=== PATIENT | female | born 1940 | race Caucasian/White ===

== ENCOUNTER → 2017-12-26 09:41 | Outpatient (CLI) | payer MEDICARE, SELFPAY ==
[2017-12-26 10:01] LABS: Basophils # 0.1 K/mm3 (0-0.2); Basophils % 1.8 % (0.1-2.0); Eosinophils # 0.4 K/mm3 (0.0-0.4); Eosinophils % 7.1 % (0.1-12.0); Hematocrit 25.9 % (37.0-47.0); Lymphocytes # 1.8 K/mm3 (0.7-4.5); Lymphocytes % 31.9 K/mm3 (10-50); Mean Corpuscular HGB Conc 27.4 g/dL (31.8-35.4); Mean Corpuscular Hemoglobin 21.9 pg (27.0-31.2); Mean Platelet Volume 8.9 fl (7.4-10.4); Monocytes # 0.4 K/mm3 (0.1-1.0); Monocytes % 6.8 % (1.7-9.3); Neutrophils # 2.9 K/mm3 (1.8-7.8); Neutrophils % 52.4 % (37.0-80.0); Platelet Count 318 K/mm3 (142-424); Red Blood Count 3.24 M/mm3 (4.20-5.40); Red Cell Distribution Width 16.1 % (11.5-17.5); White Blood Count 5.6 K/mm3 (4.8-10.8)
[2017-12-26 10:06] LABS: Hemoglobin 7.1 g/dL (12.2-16.2)
== END ==
PROVIDERS: Visit Provider Internal Medicine Interventional Cardiology
DX: D64.9 Anemia, unspecified (principal)
CPT/HCPCS: 36415; 85025

== ENCOUNTER → 2018-01-04 11:36 | Outpatient (CLI) | payer MEDICARE, SELFPAY ==
[2018-01-04 13:20] VITALS: PULSE 74
[2018-01-04 13:34] LABS: Ferritin 107 ng/mL (8-388)
[2018-01-04 13:47] LABS: Basophils # 0.1 K/mm3 (0-0.2); Basophils % 1.5 % (0.1-2.0); Eosinophils # 0.4 K/mm3 (0.0-0.4); Eosinophils % 5.4 % (0.1-12.0); Hematocrit 38.3 % (37.0-47.0); Hemoglobin 11.2 g/dL (12.2-16.2); Lymphocytes # 1.8 K/mm3 (0.7-4.5); Lymphocytes % 27.1 K/mm3 (10-50); Mean Corpuscular HGB Conc 29.2 g/dL (31.8-35.4); Mean Corpuscular Hemoglobin 24.2 pg (27.0-31.2); Mean Corpuscular Volume 82.8 fl (81-99); Mean Platelet Volume 7.9 fl (7.4-10.4); Monocytes # 0.5 K/mm3 (0.1-1.0); Monocytes % 7.9 % (1.7-9.3); Neutrophils # 3.9 K/mm3 (1.8-7.8); Neutrophils % 58.1 % (37.0-80.0); Platelet Count 300 K/mm3 (142-424); Red Blood Count 4.62 M/mm3 (4.20-5.40); Reticulocyte % (Auto) 6.9 % (0.9-3.2); White Blood Count 6.7 K/mm3 (4.8-10.8)
[2018-01-05 08:29] LABS: Iron 202 ug/dL (27-139); Iron Saturation 54 % (15-55); UIBC 173 ug/dL (118-369)
[2018-01-06 06:39] LABS: Vitamin B12 543 pg/mL (232-1245)
== END ==
PROVIDERS: Nurse Practitioner Acute Care; Family Provider Nurse Practitioner Family; PCP Family Medicine; Visit Provider Internal Medicine Interventional Cardiology
DX: D50.9 Iron deficiency anemia, unspecified (principal); R06.02 Shortness of breath; J44.9 Chronic obstructive pulmonary disease, unspecified
CPT/HCPCS: 36415; 82607; 82728; 83540; 83550; 85025; 85044; 94060; 94640; 94727; 94729

== ENCOUNTER → 2018-02-02 13:25 | Outpatient (CLI) | payer MEDICARE, SELFPAY ==
--- NOTE | 2018-02-02 13:32 | XR_ITS ---
XR KUB HISTORY: Status post capsule endoscopy with retained capsule ITS.REASON: RETAINED F/B ORDERING PHYSICIAN: Stefanie Hanna PATIENT AGE: 77 years COMPARISON: None FINDINGS: A capsule is present overlying the right iliac crest in the region of the cecum. There is an additional density in the left upper quadrant overlying the area of the proximal descending colon. No obstruction or other significant anomalies. IMPRESSION: 2 densities are present one in region of the cecum and one in region of the splenic flexure. The density in the right lower quadrant is consistent with a retained capsule from the capsule endoscopy. The density in the left upper quadrant could be related to retained capsule or overlying calcification in the spleen. Please correlate to the number of capsules that the patient was given
== END ==
PROVIDERS: PCP Family Medicine; Visit Provider Nurse Practitioner Family
DX: Z18.9 Retained foreign body fragments, unspecified material (principal)
CPT/HCPCS: 74018

== ENCOUNTER → 2018-04-06 11:12 | Outpatient (CLI) | payer MEDICARE, SELFPAY ==
--- NOTE | 2018-04-06 11:17 | XR_ITS ---
XR KUB HISTORY: ITS.REASON: RETAINED FOREIGN BODY ORDERING PHYSICIAN: Marleny Walton PATIENT AGE: 77 years COMPARISON: 02/02/2018 FINDINGS: There is an oval density present in the left upper quadrant in the region of the distal transverse colon measuring 16 mm and is consistent with retained capsule from capsule endoscopy. The previously noted opacity overlying the splenic flexure is no longer apparent. There is a mild amount retained colonic feces. IMPRESSION: Retained capsule from capsule endoscopy within the distal aspect of the transverse colon
== END ==
PROVIDERS: PCP Family Medicine; Visit Provider Internal Medicine Gastroenterology
DX: Z18.9 Retained foreign body fragments, unspecified material (principal)
CPT/HCPCS: 74018

== ENCOUNTER → 2019-12-25 15:56 | Outpatient (CLI) | payer MEDICARE, SELFPAY ==
[2019-12-25 16:52] LABS: Basophils # 0.1 K/mm3 (0-0.2); Basophils % 1.1 % (0.1-2.0); Eosinophils # 0.3 K/mm3 (0.0-0.4); Eosinophils % 3.3 % (0.1-12.0); Hematocrit 49.5 % (37.0-47.0); Hemoglobin 16.4 g/dL (12.2-16.2); Lymphocytes # 2.6 K/mm3 (0.7-4.5); Lymphocytes % 31.5 % (10-50); Mean Corpuscular HGB Conc 33.1 g/dL (31.8-35.4); Mean Corpuscular Hemoglobin 33.4 pg (27.0-31.2); Mean Corpuscular Volume 100.9 fl (81-99); Mean Platelet Volume 11.7 fl (7.4-10.4); Monocytes # 0.8 K/mm3 (0.1-1.0); Neutrophils # 4.6 K/mm3 (1.8-7.8); Neutrophils % 55.2 % (37.0-80.0); Platelet Count 170 K/mm3 (142-424); Red Blood Count 4.91 M/mm3 (4.20-5.40); White Blood Count 8.4 K/mm3 (4.8-10.8)
[2019-12-25 18:07] LABS: Alanine Aminotransferase 24 U/L (12-78); Albumin Level 4.2 g/dl (3.5-5.0); Albumin/Globulin Ratio 1.4 (1.1-1.8); Alkaline Phosphatase 108 U/L (38-126); Aspartate Amino Transferase 35 U/L (14-36); Bilirubin,Total 0.6 mg/dl (0.2-1.3); Blood Urea Nitrogen 14 mg/dl (7-17); Calcium 10.2 mg/dl (8.4-10.2); Carbon Dioxide 27 mmol/L (22.0-30.0); Chloride 106 mmol/L (98-107); Chol/HDL Ratio 2.9 (1-3.5); Cholesterol 169 mg/dl (140-200); Estimated Glomerular Filt Rate 70 ml/min (>60); GFR (African American) 84 ML/MIN (>60); Globulin 2.9 g/dL (1.3-3.2); Glucose 93 mg/dl (74-100); HDL Cholesterol 59 mg/dl (40-60); Sodium 139 mmol/L (136-145); Total Protein,Serum 7.1 g/dl (6.3-8.2); Triglycerides 263 mg/dl (30-150); VLDL Cholesterol 53 mg/dL (0-40)
[2019-12-25 18:18] LABS: Direct LDL Cholesterol 75.78 mg/dL (100-129)
[2019-12-25 18:37] LABS: Thyroid Stimulating Hormone 1.85 uIU/mL (0.465-4.68)
[2019-12-27 12:34] LABS: Vitamin B12 313 pg/mL (232-1245)
== END ==
PROVIDERS: Visit Provider Nurse Practitioner Family
DX: I10 Essential (primary) hypertension (principal); E78.5 Hyperlipidemia, unspecified; R53.83 Other fatigue
CPT/HCPCS: 36415; 80053; 80061; 82607; 83735; 84443; 85025

== ENCOUNTER → 2020-10-29 15:19 | Outpatient (CLI) | payer MEDICARE, SELFPAY ==
--- NOTE | 2020-10-29 15:28 | XR_ITS ---
PROCEDURE: XR CHEST 2V CLINICAL HISTORY: SOB COMPARISON: No exams were available for comparison FINDINGS: The cardiomediastinal silhouette and pulmonary vascularity are within normal limits. The lungs are clear without infiltrates, suspicious nodules, or pleural effusions. No acute bony abnormalities. IMPRESSION: No acute findings. Dictated by: Fly Harden MD 10/29/2020 15:51 Fly Harden MD in [place] 10/29/2020 15:51
== END ==
PROVIDERS: PCP Nurse Practitioner Family; Visit Provider Family Medicine
DX: R06.02 Shortness of breath (principal)
CPT/HCPCS: 71046

== ENCOUNTER → 2020-11-11 12:59 | Outpatient (CLI) | payer MEDICARE, SELFPAY ==
[2020-11-11 13:31] LABS: INR 2.38 (0.9-1.1); Prothrombin Time 26.3 seconds (10.1-12.5)
== END ==
PROVIDERS: Visit Provider Internal Medicine
DX: Z51.81 Encounter for therapeutic drug level monitoring (principal); Z79.01 Long term (current) use of anticoagulants; I48.91 Unspecified atrial fibrillation
CPT/HCPCS: 36415; 85610

== ENCOUNTER → 2020-11-17 10:30 | Outpatient (CLI) | payer MEDICARE, SELFPAY ==
[2020-11-17 11:20] LABS: Prothrombin Time 22.1 seconds (10.1-12.5)
[2020-11-17 11:22] LABS: INR 1.97 (0.9-1.1)
== END ==
PROVIDERS: Visit Provider Internal Medicine
DX: Z20.822 Contact with and (suspected) exposure to COVID-19 (principal); Z51.81 Encounter for therapeutic drug level monitoring; Z79.01 Long term (current) use of anticoagulants; I48.0 Paroxysmal atrial fibrillation
CPT/HCPCS: 36415; 85610; U0003

== ENCOUNTER → 2020-11-21 10:08 | Outpatient (CLI) | payer MEDICARE, SELFPAY ==
[2020-11-21 10:40] LABS: Prothrombin Time 21.2 seconds (10.1-12.5)
[2020-11-21 10:41] LABS: INR 1.88 (0.9-1.1)
== END ==
PROVIDERS: Visit Provider Internal Medicine
DX: Z51.81 Encounter for therapeutic drug level monitoring (principal); Z79.01 Long term (current) use of anticoagulants; I48.0 Paroxysmal atrial fibrillation
CPT/HCPCS: 36415; 85610

== ENCOUNTER → 2020-11-26 10:32 | Outpatient (CLI) | payer MEDICARE, SELFPAY ==
[2020-11-26 11:21] LABS: Prothrombin Time 16.2 seconds (10.1-12.5)
[2020-11-26 11:30] LABS: INR 1.41 (0.9-1.1)
== END ==
PROVIDERS: Visit Provider Internal Medicine
DX: Z51.81 Encounter for therapeutic drug level monitoring (principal); Z79.01 Long term (current) use of anticoagulants; I48.0 Paroxysmal atrial fibrillation
CPT/HCPCS: 36415; 85610

== ENCOUNTER → 2020-12-01 09:29 | Outpatient (CLI) | payer MEDICARE, SELFPAY ==
[2020-12-01 10:25] LABS: INR 2.67 (0.9-1.1); Prothrombin Time 29.3 seconds (10.1-12.5)
== END ==
PROVIDERS: Visit Provider Internal Medicine
DX: Z51.81 Encounter for therapeutic drug level monitoring (principal); Z79.01 Long term (current) use of anticoagulants; I48.0 Paroxysmal atrial fibrillation
CPT/HCPCS: 36415; 85610

== ENCOUNTER → 2020-12-05 09:35 | Outpatient (CLI) | payer MEDICARE, SELFPAY ==
[2020-12-05 10:03] LABS: INR 2.15 (0.9-1.1)
== END ==
PROVIDERS: Visit Provider Internal Medicine
DX: Z51.81 Encounter for therapeutic drug level monitoring (principal); Z79.01 Long term (current) use of anticoagulants; I48.0 Paroxysmal atrial fibrillation
CPT/HCPCS: 36415; 85610

== ENCOUNTER → 2020-12-12 09:53 | Outpatient (CLI) | payer MEDICARE, SELFPAY ==
[2020-12-12 10:15] LABS: Prothrombin Time 31.5 seconds (10.1-12.5)
[2020-12-12 10:17] LABS: INR 2.89 (0.9-1.1)
== END ==
PROVIDERS: Visit Provider Internal Medicine
DX: Z51.81 Encounter for therapeutic drug level monitoring (principal); Z79.01 Long term (current) use of anticoagulants; I48.0 Paroxysmal atrial fibrillation
CPT/HCPCS: 36415; 85610

== ENCOUNTER → 2020-12-26 09:44 | Outpatient (CLI) | payer MEDICARE, SELFPAY ==
[2020-12-26 10:13] LABS: Prothrombin Time 24.3 seconds (10.1-12.5)
[2020-12-26 10:20] LABS: INR 2.18 (0.9-1.1)
== END ==
PROVIDERS: Visit Provider Internal Medicine
DX: Z51.81 Encounter for therapeutic drug level monitoring (principal); Z79.01 Long term (current) use of anticoagulants; I48.0 Paroxysmal atrial fibrillation
CPT/HCPCS: 36415; 85610

== ENCOUNTER → 2021-02-03 09:11 | Outpatient (CLI) | payer MEDICARE, SELFPAY ==
[2021-02-03 09:35] LABS: Prothrombin Time 25.1 seconds (10.1-12.5)
[2021-02-03 09:39] LABS: INR 2.26 (0.9-1.1)
== END ==
PROVIDERS: Visit Provider Internal Medicine
DX: Z51.81 Encounter for therapeutic drug level monitoring (principal); Z79.01 Long term (current) use of anticoagulants; I48.0 Paroxysmal atrial fibrillation
CPT/HCPCS: 36415; 85610

== ENCOUNTER → 2021-03-04 11:02 | Outpatient (CLI) | payer MEDICARE, SELFPAY ==
[2021-03-04 11:24] LABS: Prothrombin Time 40.3 seconds (10.1-12.5)
[2021-03-04 11:25] LABS: INR 3.77 (0.9-1.1)
== END ==
PROVIDERS: Visit Provider Internal Medicine
DX: Z51.81 Encounter for therapeutic drug level monitoring (principal); Z79.01 Long term (current) use of anticoagulants; I48.0 Paroxysmal atrial fibrillation
CPT/HCPCS: 36415; 85610

== ENCOUNTER → 2021-03-18 09:37 | Outpatient (CLI) | payer MEDICARE, SELFPAY ==
[2021-03-18 10:12] LABS: INR 2.67 (0.9-1.1); Prothrombin Time 28.1 seconds (10.1-12.5)
== END ==
PROVIDERS: Visit Provider Internal Medicine
DX: Z51.81 Encounter for therapeutic drug level monitoring (principal); Z79.01 Long term (current) use of anticoagulants; I48.0 Paroxysmal atrial fibrillation; R79.1 Abnormal coagulation profile
CPT/HCPCS: 36415; 85610

== ENCOUNTER → 2021-05-04 09:20 | Outpatient (CLI) | payer MEDICARE, SELFPAY ==
[2021-05-04 09:58] LABS: INR 2.42 (0.9-1.1); Prothrombin Time 25.6 seconds (10.1-12.5)
== END ==
PROVIDERS: Visit Provider Internal Medicine
DX: Z51.81 Encounter for therapeutic drug level monitoring (principal); Z79.01 Long term (current) use of anticoagulants; I48.0 Paroxysmal atrial fibrillation
CPT/HCPCS: 36415; 85610

== ENCOUNTER → 2021-06-01 12:21 | Outpatient (CLI) | payer MEDICARE, SELFPAY ==
[2021-06-01 13:05] LABS: INR 2.69 (0.9-1.1); Prothrombin Time 28.2 seconds (10.1-12.5)
== END ==
PROVIDERS: Visit Provider Internal Medicine
DX: Z51.81 Encounter for therapeutic drug level monitoring (principal); Z79.01 Long term (current) use of anticoagulants; I48.0 Paroxysmal atrial fibrillation
CPT/HCPCS: 36415; 85610

== ENCOUNTER → 2021-07-06 09:11 | Outpatient (CLI) | payer MEDICARE, SELFPAY ==
[2021-07-06 09:40] LABS: Prothrombin Time 19.5 seconds (10.1-12.5)
== END ==
PROVIDERS: PCP Family Medicine; Visit Provider Internal Medicine
DX: R79.1 Abnormal coagulation profile (principal)
CPT/HCPCS: 36415; 85610

== ENCOUNTER → 2021-07-24 12:13 | Outpatient (CLI) | payer MEDICARE, SELFPAY ==
[2021-07-24 13:50] LABS: INR 2.65 (0.9-1.1); Prothrombin Time 27.9 seconds (10.1-12.5)
== END ==
PROVIDERS: PCP Family Medicine; Visit Provider Internal Medicine
DX: Z51.81 Encounter for therapeutic drug level monitoring (principal); Z79.01 Long term (current) use of anticoagulants; I48.0 Paroxysmal atrial fibrillation
CPT/HCPCS: 36415; 85610

== ENCOUNTER → 2021-08-17 09:29 | Outpatient (CLI) | payer MEDICARE, SELFPAY ==
[2021-08-17 10:03] LABS: INR 3.17 (0.9-1.1); Prothrombin Time 32.9 seconds (10.1-12.5)
== END ==
PROVIDERS: Visit Provider Internal Medicine
DX: I48.0 Paroxysmal atrial fibrillation (principal)
CPT/HCPCS: 36415; 85610

== ENCOUNTER → 2021-08-31 11:10 | Outpatient (CLI) | payer MEDICARE, SELFPAY ==
[2021-08-31 12:41] LABS: INR 2.05 (0.9-1.1)
== END ==
PROVIDERS: Visit Provider Internal Medicine
DX: Z51.81 Encounter for therapeutic drug level monitoring (principal); Z79.01 Long term (current) use of anticoagulants; I48.0 Paroxysmal atrial fibrillation
CPT/HCPCS: 36415; 85610

== ENCOUNTER → 2021-09-14 14:20 | Outpatient (CLI) | payer MEDICARE, SELFPAY ==
[2021-09-14 15:19] LABS: INR 1.34 (0.9-1.1); Prothrombin Time 14.8 seconds (10.1-12.5)
== END ==
PROVIDERS: Visit Provider Internal Medicine
DX: I48.0 Paroxysmal atrial fibrillation (principal)
CPT/HCPCS: 36415; 85610

== ENCOUNTER → 2021-09-18 10:34 | Outpatient (CLI) | payer MEDICARE, SELFPAY ==
[2021-09-18 11:00] LABS: Prothrombin Time 24.4 seconds (10.1-12.5)
== END ==
PROVIDERS: Visit Provider Internal Medicine
DX: Z51.81 Encounter for therapeutic drug level monitoring (principal); Z79.01 Long term (current) use of anticoagulants; I48.0 Paroxysmal atrial fibrillation
CPT/HCPCS: 36415; 85610

== ENCOUNTER → 2021-09-25 10:33 | Outpatient (CLI) | payer MEDICARE, SELFPAY ==
[2021-09-25 11:19] LABS: INR 2.42 (0.9-1.1); Prothrombin Time 25.6 seconds (10.1-12.5)
== END ==
PROVIDERS: Visit Provider Internal Medicine
DX: Z51.81 Encounter for therapeutic drug level monitoring (principal); Z79.01 Long term (current) use of anticoagulants; I48.0 Paroxysmal atrial fibrillation
CPT/HCPCS: 36415; 85610

== ENCOUNTER → 2021-10-05 10:32 | Outpatient (CLI) | payer MEDICARE, SELFPAY ==
[2021-10-05 10:59] LABS: INR 2.79 (0.9-1.1); Prothrombin Time 29.2 seconds (10.1-12.5)
== END ==
PROVIDERS: Visit Provider Internal Medicine
DX: Z51.81 Encounter for therapeutic drug level monitoring (principal); Z79.01 Long term (current) use of anticoagulants; I48.0 Paroxysmal atrial fibrillation
CPT/HCPCS: 36415; 85610

== ENCOUNTER → 2021-10-20 12:15 | Outpatient (CLI) | payer MEDICARE, SELFPAY ==
[2021-10-20 13:13] LABS: Chol/HDL Ratio 2.4 (1-3.5); Cholesterol 146 mg/dl (140-200); HDL Cholesterol 62 mg/dl (40-60); Triglycerides 136 mg/dl (30-150); VLDL Cholesterol 27 mg/dL (0-40)
[2021-10-20 13:23] LABS: Troponin I < 0.01 ng/ml (0.00-0.034)
[2021-10-20 13:24] LABS: Direct LDL Cholesterol 55.55 mg/dL (100-129)
== END ==
PROVIDERS: Visit Provider Family Medicine
DX: R94.31 Abnormal electrocardiogram [ECG] [EKG] (principal); E78.5 Hyperlipidemia, unspecified
CPT/HCPCS: 36415; 80061; 84484

== ENCOUNTER → 2021-10-21 09:00 | Outpatient (CLI) | payer MEDICARE, SELFPAY ==
[2021-10-21 10:28] LABS: Troponin I < 0.01 ng/ml (0.00-0.034)
== END ==
PROVIDERS: Visit Provider Nurse Practitioner Family
DX: I48.91 Unspecified atrial fibrillation (principal); I10 Essential (primary) hypertension
CPT/HCPCS: 36415; 84484

== ENCOUNTER → 2021-11-03 10:46 | Outpatient (CLI) | payer MEDICARE, SELFPAY ==
[2021-11-03 11:47] LABS: INR 2.22 (0.9-1.1); Prothrombin Time 23.6 seconds (10.1-12.5)
== END ==
PROVIDERS: Visit Provider Internal Medicine
DX: Z51.81 Encounter for therapeutic drug level monitoring (principal); Z79.01 Long term (current) use of anticoagulants; I48.0 Paroxysmal atrial fibrillation
CPT/HCPCS: 36415; 85610

== ENCOUNTER → 2021-12-02 10:33 | Outpatient (CLI) | payer MEDICARE, SELFPAY ==
[2021-12-02 11:12] LABS: INR 2.44 (0.9-1.1); Prothrombin Time 25.8 seconds (10.1-12.5)
== END ==
PROVIDERS: PCP Family Medicine; Visit Provider Internal Medicine
DX: Z51.81 Encounter for therapeutic drug level monitoring (principal); Z79.01 Long term (current) use of anticoagulants; I48.0 Paroxysmal atrial fibrillation
CPT/HCPCS: 36415; 85610

== ENCOUNTER → 2021-12-30 10:01 | Outpatient (CLI) | payer MEDICARE, SELFPAY ==
[2021-12-30 11:06] LABS: INR 1.67 (0.9-1.1); Prothrombin Time 18.2 seconds (10.1-12.5)
== END ==
PROVIDERS: PCP Family Medicine; Visit Provider Internal Medicine
DX: Z51.81 Encounter for therapeutic drug level monitoring (principal); Z79.01 Long term (current) use of anticoagulants; I48.0 Paroxysmal atrial fibrillation
CPT/HCPCS: 36415; 85610

== ENCOUNTER → 2022-01-06 09:39 | Outpatient (CLI) | payer MEDICARE, SELFPAY ==
[2022-01-06 10:09] LABS: INR 2.04 (0.9-1.1); Prothrombin Time 21.9 seconds (10.1-12.5)
== END ==
PROVIDERS: PCP Family Medicine; Visit Provider Internal Medicine
DX: Z51.81 Encounter for therapeutic drug level monitoring (principal); Z79.01 Long term (current) use of anticoagulants; I48.0 Paroxysmal atrial fibrillation
CPT/HCPCS: 36415; 85610

== ENCOUNTER → 2022-01-25 10:49 | Outpatient (CLI) | payer MEDICARE, SELFPAY ==
[2022-01-25 11:58] LABS: INR 4.61 (0.9-1.1)
[2022-01-25 15:23] LABS: Prothrombin Time 46.5 seconds (10.1-12.5)
== END ==
PROVIDERS: PCP Family Medicine; Visit Provider Internal Medicine
DX: Z51.81 Encounter for therapeutic drug level monitoring (principal); Z79.01 Long term (current) use of anticoagulants; I48.0 Paroxysmal atrial fibrillation
CPT/HCPCS: 36415; 85610

== ENCOUNTER → 2022-01-29 10:30 | Outpatient (CLI) | payer MEDICARE, SELFPAY ==
[2022-01-29 11:10] LABS: INR 2.15 (0.9-1.1)
== END ==
PROVIDERS: PCP Family Medicine; Visit Provider Internal Medicine
DX: Z51.81 Encounter for therapeutic drug level monitoring (principal); Z79.01 Long term (current) use of anticoagulants; I48.0 Paroxysmal atrial fibrillation
CPT/HCPCS: 36415; 85610

== ENCOUNTER → 2022-02-05 09:19 | Outpatient (CLI) | payer MEDICARE, SELFPAY ==
[2022-02-05 09:47] LABS: Prothrombin Time 25.4 seconds (10.1-12.5)
== END ==
PROVIDERS: PCP Family Medicine; Visit Provider Internal Medicine
DX: Z51.81 Encounter for therapeutic drug level monitoring (principal); Z79.01 Long term (current) use of anticoagulants; I48.0 Paroxysmal atrial fibrillation
CPT/HCPCS: 36415; 85610

== ENCOUNTER → 2022-02-22 10:09 | Outpatient (CLI) | payer MEDICARE, SELFPAY ==
[2022-02-22 10:38] LABS: INR 3.11 (0.9-1.1); Prothrombin Time 31.5 seconds (10.1-12.5)
== END ==
PROVIDERS: PCP Family Medicine; Visit Provider Internal Medicine
DX: Z51.81 Encounter for therapeutic drug level monitoring (principal); Z79.01 Long term (current) use of anticoagulants; I48.0 Paroxysmal atrial fibrillation
CPT/HCPCS: 36415; 85610

== ENCOUNTER → 2022-03-08 11:43 | Outpatient (CLI) | payer MEDICARE, SELFPAY ==
[2022-03-08 12:08] LABS: INR 3.01 (0.9-1.1); Prothrombin Time 30.5 seconds (10.1-12.5)
== END ==
PROVIDERS: PCP Family Medicine; Visit Provider Internal Medicine
DX: Z51.81 Encounter for therapeutic drug level monitoring (principal); Z79.01 Long term (current) use of anticoagulants; I48.0 Paroxysmal atrial fibrillation
CPT/HCPCS: 36415; 85610

== ENCOUNTER → 2022-03-23 09:43 | Outpatient (CLI) | payer MEDICARE, SELFPAY ==
[2022-03-23 10:06] LABS: INR 2.26 (0.9-1.1); Prothrombin Time 23.3 seconds (10.1-12.5)
== END ==
PROVIDERS: PCP Family Medicine; Visit Provider Internal Medicine
DX: Z51.81 Encounter for therapeutic drug level monitoring (principal); Z79.01 Long term (current) use of anticoagulants; I48.0 Paroxysmal atrial fibrillation
CPT/HCPCS: 36415; 85610

== ENCOUNTER → 2022-04-07 09:55 | Outpatient (CLI) | payer MEDICARE, SELFPAY ==
[2022-04-07 10:40] LABS: INR 2.38 (0.9-1.1); Prothrombin Time 24.5 seconds (10.1-12.5)
== END ==
PROVIDERS: PCP Family Medicine; Visit Provider Internal Medicine
DX: Z51.81 Encounter for therapeutic drug level monitoring (principal); Z79.01 Long term (current) use of anticoagulants; I48.0 Paroxysmal atrial fibrillation
CPT/HCPCS: 36415; 85610

== ENCOUNTER → 2022-04-20 10:57 | Outpatient (CLI) | payer MEDICARE, SELFPAY ==
[2022-04-20 11:29] LABS: INR 3.32 (0.9-1.1); Prothrombin Time 33.5 seconds (10.1-12.5)
== END ==
PROVIDERS: PCP Family Medicine; Visit Provider Internal Medicine
DX: Z51.81 Encounter for therapeutic drug level monitoring (principal); Z79.01 Long term (current) use of anticoagulants; I48.0 Paroxysmal atrial fibrillation
CPT/HCPCS: 36415; 85610

== ENCOUNTER → 2022-05-12 09:56 | Outpatient (CLI) | payer MEDICARE, SELFPAY ==
[2022-05-12 10:39] LABS: INR 2.01 (0.9-1.1); Prothrombin Time 20.9 seconds (10.1-12.5)
== END ==
PROVIDERS: PCP Family Medicine; Visit Provider Internal Medicine
DX: Z51.81 Encounter for therapeutic drug level monitoring (principal); Z79.01 Long term (current) use of anticoagulants; I48.0 Paroxysmal atrial fibrillation
CPT/HCPCS: 36415; 85610

== ENCOUNTER → 2022-06-01 13:29 | Outpatient (CLI) | payer MEDICARE, SELFPAY ==
[2022-06-01 14:15] LABS: INR 2.68 (0.9-1.1); Prothrombin Time 27.4 seconds (9.2-12.1)
== END ==
PROVIDERS: PCP Family Medicine; Visit Provider Internal Medicine
DX: Z51.81 Encounter for therapeutic drug level monitoring (principal); Z79.01 Long term (current) use of anticoagulants; I48.0 Paroxysmal atrial fibrillation
CPT/HCPCS: 36415; 85610

== ENCOUNTER → 2022-06-21 11:18 | Outpatient (CLI) | payer MEDICARE, SELFPAY ==
[2022-06-21 12:55] LABS: INR 2.71 (0.9-1.1); Prothrombin Time 27.7 seconds (10.1-12.5)
== END ==
PROVIDERS: PCP Family Medicine; Visit Provider Internal Medicine
DX: Z51.81 Encounter for therapeutic drug level monitoring (principal); Z79.01 Long term (current) use of anticoagulants; I48.0 Paroxysmal atrial fibrillation
CPT/HCPCS: 36415; 85610

== ENCOUNTER → 2022-06-29 10:29 | Outpatient (CLI) | payer MEDICARE, SELFPAY ==
[2022-06-29 12:32] LABS: INR 2.43 (0.9-1.1)
== END ==
PROVIDERS: PCP Family Medicine; Visit Provider Internal Medicine
DX: Z51.81 Encounter for therapeutic drug level monitoring (principal); Z79.01 Long term (current) use of anticoagulants; I48.0 Paroxysmal atrial fibrillation
CPT/HCPCS: 36415; 85610

== ENCOUNTER → 2022-07-08 09:20 | Outpatient (CLI) | payer MEDICARE, SELFPAY ==
[2022-07-08 09:55] LABS: INR 1.98 (0.9-1.1); Prothrombin Time 20.6 seconds (10.1-12.5)
== END ==
PROVIDERS: PCP Family Medicine; Visit Provider Internal Medicine
DX: Z51.81 Encounter for therapeutic drug level monitoring (principal); Z79.01 Long term (current) use of anticoagulants; I48.0 Paroxysmal atrial fibrillation
CPT/HCPCS: 36415; 85610

== ENCOUNTER → 2022-08-10 10:18 | Outpatient (CLI) | payer MEDICARE, SELFPAY ==
[2022-08-10 11:02] LABS: INR 2.96 (0.9-1.1); Prothrombin Time 30.1 seconds (10.1-12.5)
== END ==
PROVIDERS: PCP Family Medicine; Visit Provider Internal Medicine
DX: Z51.81 Encounter for therapeutic drug level monitoring (principal); Z79.01 Long term (current) use of anticoagulants; I48.0 Paroxysmal atrial fibrillation
CPT/HCPCS: 36415; 85610

== ENCOUNTER → 2022-09-08 10:22 | Outpatient (CLI) | payer MEDICARE, SELFPAY ==
--- NOTE | 2022-09-08 | XR_ITS ---
FINAL REPORT CLINICAL HISTORY: RT KNEE PAIN FINDINGS: AP, lateral and oblique views of the right knee were obtained. There is no prior exam for comparison. There is no acute osseous abnormality of the right knee. The joint space is preserved. The soft tissues are normal. There is no joint effusion. IMPRESSION: No acute osseous abnormality of the right knee. Reviewed, Interpreted and Dictated by Susanna Dale MD Transcribed by Jacquelin Hernández Authenticated and [facility]
--- NOTE | 2022-09-08 10:40 | XR_ITS ---
FINAL REPORT CLINICAL HISTORY: LT KNEE PAIN FINDINGS: AP, lateral and oblique views of the left knee were obtained. There is no prior exam for comparison. There is no acute osseous abnormality of the left knee. There is degenerative joint disease, most pronounced in the medial compartment. Small joint effusion is identified. The soft tissues are normal. IMPRESSION: Degenerative joint disease and small joint effusion. Reviewed, Interpreted and Dictated by Susanna Dale MD Transcribed by Jacquelin Hernández Authenticated and . [facility]
[2022-09-08 11:04] LABS: INR 2.38 (0.9-1.1); Prothrombin Time 24.5 seconds (10.1-12.5)
== END ==
PROVIDERS: PCP Nurse Practitioner Family; Visit Provider Internal Medicine
DX: M25.562 Pain in left knee (principal); M25.561 Pain in right knee; Z51.81 Encounter for therapeutic drug level monitoring; Z79.01 Long term (current) use of anticoagulants
CPT/HCPCS: 36415; 73562; 85610

== ENCOUNTER → 2022-10-06 09:56 | Outpatient (CLI) | payer MEDICARE, SELFPAY ==
[2022-10-06 11:47] LABS: INR 2.13 (0.9-1.1)
== END ==
PROVIDERS: PCP Family Medicine; Visit Provider Internal Medicine
DX: Z51.81 Encounter for therapeutic drug level monitoring (principal); Z79.01 Long term (current) use of anticoagulants; I48.0 Paroxysmal atrial fibrillation
CPT/HCPCS: 36415; 85610

== ENCOUNTER → 2022-11-06 10:21 | Outpatient (CLI) | payer MEDICARE, SELFPAY ==
[2022-11-06 10:55] LABS: Prothrombin Time 31.4 seconds (10.1-12.5)
== END ==
PROVIDERS: PCP Family Medicine; Visit Provider Internal Medicine
DX: Z51.81 Encounter for therapeutic drug level monitoring (principal); Z79.01 Long term (current) use of anticoagulants; I48.0 Paroxysmal atrial fibrillation
CPT/HCPCS: 36415; 85610

== ENCOUNTER → 2022-12-07 13:22 | Outpatient (CLI) | payer MEDICARE, SELFPAY ==
[2022-12-07 14:21] LABS: INR 2.43 (0.9-1.1)
== END ==
PROVIDERS: PCP Family Medicine; Visit Provider Internal Medicine
DX: Z51.81 Encounter for therapeutic drug level monitoring (principal); Z79.01 Long term (current) use of anticoagulants; I48.0 Paroxysmal atrial fibrillation
CPT/HCPCS: 36415; 85610

== ENCOUNTER 2022-12-19 15:26 | Emergency (ER) | payer MEDICARE, SELFPAY ==
[2022-12-19 15:40] VITALS: BP 186/90; PULSE 57; RESP 21; TEMP 36.8; O2SAT 95; BMI 32.9
--- NOTE | 2022-12-19 15:59 | EXP.UTC ---
Discharge Plan Disposition Patient Disposition: Home, Self-Care Condition: Good Prescriptions Prescriptions: New valacyclovir 1 gram tablet 1,000 mg PO Q8H 7 Days Qty: 21 0RF No Action aspirin 81 MG tablet,chewable 81 mg PO DAILY albuterol sulfate [ProAir HFA] 8.5 GM HFA aerosol inhaler 2 puffs inhalation Q6H rivaroxaban [Xarelto] 10 MG tablet 10 mg PO DAILY meclizine 12.5 MG tablet 12.5 mg PO BID Qty: 10 0RF Referrals Follow up/Referrals: Eula Arredondo APRN [Primary Care Provider] - See instructions Activity Restrictions/Add. Instructions Additional Instructions/Restrictions: You was given outpatient order for Venous Doppler left lower extremity call in the morning for appointment Follow up with your Family DOctor for the results Straight to ER if any life threatening symptoms Clinical Impressions Clinical Impression: Knee pain Qualifiers: Chronicity: unspecified Laterality: left Qualified Code(s): M25.562 - Pain in left knee Shingles Qualifiers: Herpes zoster complications: without complications Qualified Code(s): B02.9 - Zoster without complications Instructions Patient Instructions: DI for Shingles, DI for Knee Pain Discharge ED Provider: Arcelia Coles [facility] General Stated complaint: rash, left leg pain Mode of Arrival: Ambulatory Source of Information: Patient Limitations: No Limitations Time Seen by Provider: 12/19/22 16:00 Description of Symptoms (Recalled from Triage Doc. by RN): PATIENT C/O ACHING IN HER LEFT CALF THAT RADIATES INTO BACK OF LEFT THIGH. SHE REPORTS A HISTORY OF A DVT IN SAME LEG AND STATES IT FEELS SIMILAR TODAY. SHE ALSO REPORTS AN ITCHY RASH TO BUTTOCK AREA THAT STARTED TUESDAY HEENT Symptoms (Recalled from RN notes): No Resp Symptoms (Recalled from RN notes): No Skin Symptoms (Recalled from RN notes): Yes MS Symptoms (Recalled from RN notes): Yes Functional Status (Recalled from RN notes): WNL History of Present Illness Provider Complaint: Patient states that she has been having pain in her left knee area and swelling States that it is hurting around to the back of knee and having pain and tenderness in calf and just above the knee States that she has had a DVT before in the same leg and she was worried about it where it was hurting States that also she has a painful rash on her left buttock area States that she thought something may have bitten her but it has continued to spread States that it itches and rodriguez and sore to the touch Related Data Home Medications Medication Instructions Recorded Confirmed albuterol sulfate 90 mcg/actuation 2 puffs inhalation Q6H SOA 12/19/17 12/19/17 aerosol inhaler (ProAir HFA) aspirin 81 mg chewable tablet 81 mg PO DAILY Blood thinner 12/19/17 12/19/17 rivaroxaban 10 mg tablet (Xarelto) 10 mg PO DAILY Blood thinner 12/19/17 12/19/17 Previous Rx's Medication Instructions Recorded meclizine 12.5 mg tablet 12.5 mg PO BID #10 tabs 12/19/17 valacyclovir 1 gram tablet 1,000 mg PO Q8H 7 days #21 tabs 12/19/22 Allergies Allergy/AdvReac Type Severity Reaction Status Date / Time Penicillins Allergy Verified 12/19/17 18:51 Worker's Comp Is this a Worker's Comp case?: No [facility] Disclaimer: The information contained in this section may have been updated after the patient was seen, as this information can be updated by other users. Medical History (Updated 12/19/22 @ 18:01 by Arcelia Coles APRN) Atrial fibrillation COPD (chronic obstructive pulmonary disease) Depression History of heart attack History of pacemaker History of stroke Hyperlipidemia Hypertension Surgical History (Updated 12/19/22 @ 15:57 by Cris Magaña RN) History of tubal ligation Social History Smoking Status: Unknown if ever smoked alcohol intake: never current occupational status: retired Travel in the last 8 weeks: None ROS Obtained: Yes All systems reviewed & no additional compl
--- NOTE | 2022-12-19 16:02 | XR_ITS ---
PROCEDURE INFORMATION: Exam: XR Left Knee Exam date and time: 12/19/2022 4:06 PM Age: 82 years old Clinical indication: Pain; Knee; Left; Additional info: Pain/swelling TECHNIQUE: Imaging protocol: Radiologic exam of the left knee. Views: 3 views. COMPARISON: CR XR KNEE LT 3V 09/08/2022 10:58 AM FINDINGS: Bones/joints: There are pronounced degenerative changes of the knee joint, predominantly involving the medial joint compartment. No visible fracture or dislocation. Soft tissues: Normal. IMPRESSION: No visible fracture or dislocation.
[2022-12-19 17:12] VITALS: BP 186/90; PULSE 57; RESP 21; TEMP 36.8; O2SAT 95
[2022-12-19 17:51] LABS: Prothrombin Time 26.6 seconds (10.1-12.5)
== END 2022-12-19 18:07 | disposition home or self-care (01) ==
PROVIDERS: Emergency Provider Nurse Practitioner; PCP Nurse Practitioner Family
DX: B02.9 Zoster without complications (principal); M25.562 Pain in left knee; I48.0 Paroxysmal atrial fibrillation; J44.9 Chronic obstructive pulmonary disease, unspecified; I10 Essential (primary) hypertension; E78.5 Hyperlipidemia, unspecified; F32.A Depression, unspecified; Z95.0 Presence of cardiac pacemaker; Z86.718 Personal history of other venous thrombosis and embolism
CPT/HCPCS: 73562; 85610; 99204; 99212; G0463

== ENCOUNTER → 2022-12-28 10:48 | Outpatient (CLI) | payer MEDICARE, SELFPAY ==
--- NOTE | 2022-12-28 10:52 | CA_ITS ---
FINAL REPORT TECHNIQUE: Ultrasound images of the deep venous system were obtained from the left groin to the calf veins. CLINICAL HISTORY: LEFT LEG PAIN X MONTHS,NKI, PT ON [place] FINDINGS: The deep venous system is normally compressible. Normal flow is identified. Note is made of a popliteal cyst measuring up to 6.5 cm. IMPRESSION: No evidence of left lower extremity DVT. Reviewed, Interpreted and Dictated by Susanna Dale MD Transcribed by Clinton Kennedy Authenticated and . [facility]
== END ==
PROVIDERS: PCP Nurse Practitioner Family; Visit Provider Nurse Practitioner Family
DX: M79.605 Pain in left leg (principal)
CPT/HCPCS: 93971

== ENCOUNTER → 2022-12-29 13:07 | Outpatient (POV) | payer MEDICARE, SELFPAY ==
--- NOTE | 2022-12-29 13:34 | EXP.PAIN.OV ---
HPI Data of Consult Requesting Physician: Nabila Archibald APRN Primary Care Provider: Sanchez Castro MD Consult Narrative Reason for consult: Low back pain, bilateral leg pain, shingles History of present illness: Ms. Rebollar is a 82 year old female who presents today as a new patient. She is a referral from [facility]. Today she rates her pain a 10 out of 10. Patient states that she has had a recent outbreak of shingles that is on her left thigh and the top of her buttocks. She states she was given acyclovir however she had a severe reaction and was not able to continue the medication. Patient was also given a cream however she states she has not tried it because it is already starting to dry up. Patient does state that she comes to us today because of prolonged pain issues in her low back and legs. Patient does describe this as a aching, throbbing, sharp sensation with pressure that is worse with increased activity. She does state that today her left leg is worse than her right. Patient denies any previous back surgery or injective history. She states she has not had physical therapy however she did go to the chiropractor years ago. Patient does state that around the age of 37 she had a disc rupture and has had trouble ever since. She does state that she thinks part of her issues is related to arthritis. She does use a cane to walk. Patient does have a history of A-fib and heart attack and currently has a pacemaker in place. Patient denies any recent imaging and thinks it is probably been about 5 years. She does state that she has tried [id number] Tylenol along with heat and ice and topicals with minimal improvement. She is not on any scheduled medications. She does state the pain interferes with sleeping and that she typically gets less than 4 hours a night. She does also state that she has had SI issues in the past. CC: Nabila Archibald APRN [facility] Disclaimer: The information contained in this section may have been updated after the patient was seen, as this information can be updated by other users. Medical History (Updated 12/29/22 @ 13:53 by Nabila Archibald APRN) Atrial fibrillation COPD (chronic obstructive pulmonary disease) Depression History of heart attack History of pacemaker History of stroke Hyperlipidemia Hypertension Sacroiliitis Surgical History History of tubal ligation Social History (Updated 12/29/22 @ 13:42 by Beronica Guerra RN) Smoking Status: Unknown if ever smoked alcohol intake: never current occupational status: retired Travel in the last 8 weeks: None Review of Systems Review of Systems Review of systems:: pertinent systems reviewed and negative unless documented below Review of systems (narrative): Review of Systems: General: No recent weight changes, no fever, no sleep disturbances Respiratory: No cough, no shortness of air, no recurring pulmonary infections Cardiovascular/peripheral vascular: No chest pain, no palpitations, no edema, no shortness of breath Gastrointestinal: No new onset incontinence, normal bowel movements reported Genitourinary: No new onset incontinence Musculoskeletal: Low back pain, bilateral leg pain, shingles Psychiatric: [Normal mood/affect] Neurological: [Denies weakness in extremities], [denies balance issues] Meds Home Medications and Allergies Home Medications Medication Instructions Recorded Confirmed Type albuterol sulfate 90 mcg/actuation 2 puffs inhalation Q6H SOA 12/19/17 12/29/22 History aerosol inhaler (ProAir HFA) aspirin 81 mg chewable tablet 81 mg PO DAILY Blood thinner 12/19/17 12/29/22 History rivaroxaban 10 mg tablet (Xarelto) 10 mg PO DAILY Blood thinner 12/19/17 12/29/22 History meclizine 12.5 mg tablet 12.5 mg PO BID DIZZINESS 12/29/22 12/29/22 History tizanidine 4 mg tablet (Zanaflex) 4 mg PO HS #30 tabs 12/29/22 Rx New Prescriptions to Start Pr
[2022-12-29 13:40] VITALS: BP 179/72; PULSE 60; RESP 18; O2SAT 95; BMI 30.4
== END | disposition home or self-care (01) ==
PROVIDERS: PCP Family Medicine; Visit Provider Nurse Practitioner Family
DX: M54.42 Lumbago with sciatica, left side (principal); M54.41 Lumbago with sciatica, right side; G89.29 Other chronic pain; M54.16 Radiculopathy, lumbar region; B02.9 Zoster without complications
CPT/HCPCS: 99202; G0463

== ENCOUNTER → 2022-12-29 14:00 | Outpatient (CLI) | payer MEDICARE, SELFPAY ==
--- NOTE | 2022-12-29 14:10 | XR_ITS ---
FINAL REPORT CLINICAL HISTORY: LOWER BACK PAIN THAT RADIATES INTO BILATERAL LEGS FINDINGS: AP, lateral, and oblique views of the lumbar spine were obtained. There is no acute fracture. There is grade 1 anterior spondylolisthesis of L4 on 5. There is multilevel degenerative disc disease, most pronounced at L4-5 and L5-S1. Vertebral body height is preserved. No acute paraspinal abnormality is identified. IMPRESSION: Multilevel degenerative disc disease. Reviewed, Interpreted and Dictated by Susanna Dale MD Transcribed by Jacquelin Hernández Authenticated and [facility]
== END ==
PROVIDERS: PCP Family Medicine; Visit Provider Nurse Practitioner Family
DX: M54.50 Low back pain, unspecified (principal); M79.604 Pain in right leg; M79.605 Pain in left leg
CPT/HCPCS: 72110; 99202; G0463

== ENCOUNTER → 2023-01-06 10:58 | Outpatient (CLI) | payer MEDICARE, SELFPAY ==
--- NOTE | 2023-01-06 11:01 | CT_ITS ---
FINAL REPORT CLINICAL HISTORY: LBP x yrs, NKT, occasional numbness/tingling radiates down Lt leg. Former smoker. 0 ca hx. COMPARISON: None FINDINGS: CT LUMBAR SPINE TECHNIQUE: Thin section noncontrast axial CT with sagittal reconstructions was obtained of the lumbar spine. This study was performed with techniques to keep radiation doses as low as reasonably achievable, (ALARA). Individualized dose reduction techniques using automated exposure control or adjustment of mA and/or kV according to the patient's size were employed. FINDINGS: No fracture is present. There is mild retrolisthesis of L5 in relation to L4 and S1. T12-L1: Minimal annular disc bulge. L1-L2: Mild annular disc bulge. L2-L3: Mild annular disc bulge. Mild facet overgrowth. Borderline central canal stenosis. Mild bilateral neuroforaminal narrowing. L3-L4: Mild annular disc bulge. Moderate facet arthropathy. Mild central canal stenosis. Mild bilateral neuroforaminal narrowing. L4-L5: Moderate annular disc bulge. Advanced facet arthropathy. Severe central canal stenosis. Moderate bilateral neuroforaminal narrowing. L5-S1: Right paracentral disc extrusion extending into the right lateral recess. There is mass effect on the right S1 nerve root. IMPRESSION: Advanced canal stenosis at L4-5 and to a lesser extent L3-4. Probable disc extrusion right L5-S1. Recommend MRI correlation if patient is a candidate. Reviewed, Interpreted and Dictated by Shahnaz Tran MD Transcribed by Becky Grey Authenticated and [facility]
[2023-01-06 12:18] LABS: INR 5.05 (0.9-1.1); Prothrombin Time 49.1 seconds (10.1-12.5)
== END ==
PROVIDERS: PCP Family Medicine; Referring Provider Internal Medicine; Visit Provider Nurse Practitioner Family
DX: I48.0 Paroxysmal atrial fibrillation (principal); M54.50 Low back pain, unspecified; Z51.81 Encounter for therapeutic drug level monitoring; Z79.01 Long term (current) use of anticoagulants; M79.604 Pain in right leg; M79.605 Pain in left leg
CPT/HCPCS: 36415; 72131; 85610

== ENCOUNTER → 2023-01-11 13:08 | Outpatient (CLI) | payer MEDICARE, SELFPAY ==
[2023-01-11 14:49] LABS: INR 2.93 (0.9-1.1); Prothrombin Time 29.5 seconds (10.1-12.5)
== END ==
PROVIDERS: PCP Family Medicine; Visit Provider Internal Medicine
DX: I48.0 Paroxysmal atrial fibrillation (principal)
CPT/HCPCS: 36415; 85610

== ENCOUNTER → 2023-01-20 13:36 | Outpatient (CLI) | payer MEDICARE, SELFPAY ==
[2023-01-20 14:40] LABS: INR 3.77 (0.9-1.1); Prothrombin Time 37.3 seconds (10.1-12.5)
== END ==
PROVIDERS: PCP Family Medicine; Visit Provider Internal Medicine
DX: Z79.01 Long term (current) use of anticoagulants (principal); Z51.81 Encounter for therapeutic drug level monitoring; I48.0 Paroxysmal atrial fibrillation
CPT/HCPCS: 36415; 85610

== ENCOUNTER → 2023-01-27 13:51 | Outpatient (POV) | payer MEDICARE, SELFPAY ==
[2023-01-27 14:36] VITALS: BP 175/75; PULSE 60; RESP 20; O2SAT 96; BMI 32.1
--- NOTE | 2023-01-27 14:44 | EXP.PAIN.SOA ---
[facility] Pain Management SOAP Note Subjective:: Patient is a pleasant 82-year-old female who presents today for follow-up of CT imaging of her lumbar spine. We are currently treating the patient for low back pain with lumbar radiculopathy symptoms, previous shingles outbreak. Today she rates her pain a 2 out of 10. Patient denies any new trauma or injury. She denies any change location or type of pain she experiences. From our last visit we did prescribe tizanidine 4 mg at bedtime and she states this has provided significant improvement. She states the last couple of weeks she has had much better pain improvement and only on occasion will have pain around her left knee. Patient did complete her CT imaging and is here to review over the findings. Patient does have a longstanding history of low back pain and does use a cane to help with ambulation. Patient does have a history of A-fib and does have a cardiac pacemaker in place. Patient does state that the compounding cream we also prescribed at our last visit she did get and did start using with improvement however when she went for her refills at her pharmacy in [place] she was told to discontinue the cream due to out of range levels interfering with her Coumadin possibly. Her Devaughn is [phone]. Its been reviewed and appropriate. Review of Systems: General: No recent weight changes, no fever, no sleep disturbances Respiratory: No cough, no shortness of air, no recurring pulmonary infections Cardiovascular/peripheral vascular: No chest pain, no palpitations, no edema, no shortness of breath Gastrointestinal: No new onset incontinence, normal bowel movements reported Genitourinary: No new onset incontinence Musculoskeletal: Left knee pain Psychiatric: [Normal mood/affect] Neurological: [Denies weakness in extremities], [denies balance issues] Objective:: Physical Exam: General: Alert and oriented x3, no acute distress, pleasant and cooperative Lungs: Respirations even and unlabored, symmetrical chest expansion Eyes: PERRL Musculoskeletal: Flexion and extension of lumbar [spine] somewhat guarded secondary to pain, [antalgic gait noted] Neurological: Speech clear, no gross sensory deficit Assessment:: Degenerative disc disease of lumbar spine with lumbar radiculopathy symptoms, lumbar spinal stenosis, left knee pain, low back pain. Plan:: I will refill the patient's tizanidine 4 mg at bedtime and provide a 1 month supply of this medication. I have counseled the patient to talk to her pilot highway patrol regarding the compounding cream. I have counseled her in my experience the topical does not put her at increased risk to interfere with her Coumadin use. I have also discussed with the patient that she may benefit from a DEXA scan to rule out possible osteoporosis. Patient at this time would like to wait however I have counseled her that she can call if she changes her mind and we will order this over the phone. Patient will return to clinic in 1 month for reevaluation of symptoms and plan of care. Patient has been instructed to contact the clinic with any concerns before the next appointment. Dr. Morales has reviewed this note and agrees with this plan of care. This note was dictated using voice recognition software and make contain errors or omissions. [facility] Disclaimer: The information contained in this section may have been updated after the patient was seen, as this information can be updated by other users. Medical History (Updated 12/29/22 @ 13:53 by Nabila Archibald APRN) Atrial fibrillation COPD (chronic obstructive pulmonary disease) Depression History of heart attack History of pacemaker History of stroke Hyperlipidemia Hypertension Sacroiliitis Surgical History History of tubal ligation Social History (Updated 12/29/22 @ 13:42 by Beronica Guerra RN) Smoking Status: Unknown if ever smoked alcohol intake: never current occupation
== END ==
PROVIDERS: PCP Family Medicine; Visit Provider Nurse Practitioner Family
DX: M51.16 Intervertebral disc disorders with radiculopathy, lumbar region (principal); Z86.19 Personal history of other infectious and parasitic diseases; M25.562 Pain in left knee
CPT/HCPCS: 99212; G0463

== ENCOUNTER → 2023-01-31 10:32 | Outpatient (CLI) | payer MEDICARE, SELFPAY ==
[2023-01-31 11:27] LABS: INR 1.75 (0.9-1.1); Prothrombin Time 18.2 seconds (10.1-12.5)
== END ==
PROVIDERS: PCP Family Medicine; Visit Provider Internal Medicine
DX: Z79.01 Long term (current) use of anticoagulants (principal); Z51.81 Encounter for therapeutic drug level monitoring; I48.0 Paroxysmal atrial fibrillation
CPT/HCPCS: 36415; 85610

== ENCOUNTER → 2023-02-10 10:28 | Outpatient (CLI) | payer MEDICARE, SELFPAY ==
[2023-02-10 11:33] LABS: INR 2.11 (0.9-1.1); Prothrombin Time 21.7 seconds (10.1-12.5)
== END ==
PROVIDERS: PCP Family Medicine; Visit Provider Internal Medicine
DX: I48.0 Paroxysmal atrial fibrillation (principal); Z51.81 Encounter for therapeutic drug level monitoring; Z79.01 Long term (current) use of anticoagulants
CPT/HCPCS: 36415; 85610

== ENCOUNTER → 2023-02-23 10:44 | Outpatient (CLI) | payer MEDICARE, SELFPAY ==
[2023-02-23 12:04] LABS: INR 3.31 (0.9-1.1); Prothrombin Time 33.1 seconds (10.1-12.5)
== END ==
PROVIDERS: PCP Internal Medicine; Visit Provider Internal Medicine
DX: I48.0 Paroxysmal atrial fibrillation (principal); Z51.81 Encounter for therapeutic drug level monitoring; Z79.01 Long term (current) use of anticoagulants
CPT/HCPCS: 36415; 85610

== ENCOUNTER → 2023-02-28 09:21 | Outpatient (POV) | payer MEDICARE, SELFPAY ==
[2023-02-28 09:42] VITALS: BP 117/89; PULSE 66; RESP 18; O2SAT 95; BMI 31.2
--- NOTE | 2023-02-28 09:55 | EXP.PAIN.SOA ---
[facility] Pain Management SOAP Note Subjective:: Patient is a pleasant 82-year-old female who presents today for follow-up. We are currently treating the patient for degenerative disc disease of lumbar spine with lumbar radiculopathy symptoms, lumbar spinal stenosis, lumbar facet arthropathy, status post shingles outbreak. Today she rates her pain a 5 out of 10. Patient denies any new trauma or injury. She does state that overall she feels that she is better than she has been for years. Patient does state that she still has some pain that runs across her left knee however she is not having the pain that she was having into her lower calves. She does also states she feels like she continues to have lower leg weakness. She does use a cane to help with ambulation. Patient is currently managed with diazepam 5 mg twice a day from her primary care provider and tizanidine 4 mg at bedtime from our office. Patient denies any side effects from these medications. Patient does also state that she has not continued to use her compounded cream following the [facility] not recommending her to continue this due to her cardiac history. Patient does have a pacemaker in place and has a longstanding history of A-fib. Patient does have a routine follow-up appointment scheduled with her printer slotter feeder coming up. Her Devaughn is [phone]. Its been reviewed and appropriate. Review of Systems: General: No recent weight changes, no fever, no sleep disturbances Respiratory: No cough, no shortness of air, no recurring pulmonary infections Cardiovascular/peripheral vascular: No chest pain, no palpitations, no edema, no shortness of breath Gastrointestinal: No new onset incontinence, normal bowel movements reported Genitourinary: No new onset incontinence Musculoskeletal: Left knee pain, bilateral lower extremity weakness Psychiatric: [Normal mood/affect] Neurological: [Denies weakness in extremities], [denies balance issues] Objective:: Physical Exam: General: Alert and oriented x3, no acute distress, pleasant and cooperative Lungs: Respirations even and unlabored, symmetrical chest expansion Eyes: PERRL Musculoskeletal: Flexion and extension of lumbar [spine] somewhat guarded secondary to pain, [antalgic gait noted] Neurological: Speech clear, no gross sensory deficit Assessment:: Degenerative disc disease of lumbar spine with lumbar radiculopathy symptoms, status post shingles outbreak, lumbar spinal stenosis with lumbar facet arthropathy Plan:: Patient is doing well with her current medication regimen. I will refill the patient's tizanidine 4 mg at bedtime and provide a 3-month supply of this medication. I will also send the patient for evaluation and treatment for physical therapy for her lower extremity weakness. Patient will return to clinic in 2 months for reevaluation of symptoms and plan of care. Patient has been instructed to contact the clinic with any concerns before the next appointment. Dr. Morales has reviewed this note and agrees with this plan of care. This note was dictated using voice recognition software and make contain errors or omissions. [facility] Disclaimer: The information contained in this section may have been updated after the patient was seen, as this information can be updated by other users. Medical History (Updated 12/29/22 @ 13:53 by Nabila Archibald APRN) Atrial fibrillation COPD (chronic obstructive pulmonary disease) Depression History of heart attack History of pacemaker History of stroke Hyperlipidemia Hypertension Sacroiliitis Surgical History History of tubal ligation Social History (Updated 12/29/22 @ 13:42 by Beronica Guerra RN) Smoking Status: Unknown if ever smoked alcohol intake: never current occupational status: retired Travel in the last 8 weeks: None
== END | disposition home or self-care (01) ==
PROVIDERS: PCP Family Medicine; Visit Provider Nurse Practitioner Family
DX: M51.16 Intervertebral disc disorders with radiculopathy, lumbar region (principal); M48.061 Spinal stenosis, lumbar region without neurogenic claudication; M47.26 Other spondylosis with radiculopathy, lumbar region; B02.9 Zoster without complications
CPT/HCPCS: 99212; G0463

== ENCOUNTER 2023-03-09 10:05 | Outpatient (RCR) | payer MEDICARE, SELFPAY ==
--- NOTE | 2023-03-09 11:51 | HMH.PTOPEV ---
PT Outpatient Evaluation Rehab PT Outpatient Evaluation Start: 03/09/23 11:36 Freq: Status: Active Protocol: Document 03/09/23 11:36 DEZ (Rec: 03/09/23 11:50 DEZ [id number]) E-signed By Tommy Garcia, PT Outpatient Therapy Subjective History Subjective History Patient is an 82 year old female presenting to outpatient PT with reports of BLE weakness associated with chronic LBP. Patient reports hx of LS discectomy sx approx 10 years ago. Comorbidities include hx of pacemaker, HTN and HL. New diagnosis of cancer in past 12 No months? Chief Complaint Pain,Stiff,Weakness Symptom Type Sharp,Dull Symptoms Relieved By Rest/Positioning Symptoms Aggravated By Standing,Bending/Stooping, Physical Activity,Walking, Lifting Prior Functional Limitations Lifting,Housework,Standing, Walking,Balance,Bending/ Stooping Current Functional Limitations Lifting,Housework,Standing, Walking,Balance,Bending/ Stooping Symptom Description Intermittent Level of pain today (0-10) 0 Pain scale - at its best (0-10) 0 Pain scale - at its worst (0-10) 8 Balance Eval Subjective Hx of Complaint Comment I just don't feel comfortable up walking. I sit down all the time. Prior Functional Limitations Prior Functional [place] Level Standing, walking, bending and lifting. Current Functional Limitations Comment Standing, walking, bending and lifting. Hx of Falls Hx Falls No Gait/Posture Asssessment General Gait Observation Wide Based Gait Assistive Devices Straight Cane Level of Transfer Assist Independent Dynamic Gait Index Test Protocol Gait Level Surface Mild Impairment Query Text: Instructions: Walk at your normal speed from here to the next yesy (20'). Grading: Yesy the lowest category that applies. Change in Gait Speed Mild Impairment Query Text: Instructions: Begin walking at your normal pace (for 5'), when I tell you go , walk as fast as you can (for 5'). When I tell you slow , walk as slowly as you can (for 5'). Grading: Yesy the lowest category that ap
== END 2023-03-09 10:10 | disposition home or self-care (01) ==
LOC: PT 10:05
PROVIDERS: PCP Family Medicine; Visit Provider Nurse Practitioner Family
DX: R53.1 Weakness (principal)
CPT/HCPCS: 97163

== ENCOUNTER → 2023-03-09 10:59 | Outpatient (CLI) | payer MEDICARE, SELFPAY ==
[2023-03-09 12:58] LABS: Prothrombin Time 17.7 seconds (10.1-12.5)
== END ==
PROVIDERS: PCP Family Medicine; Visit Provider Internal Medicine
DX: I48.0 Paroxysmal atrial fibrillation (principal)
CPT/HCPCS: 36415; 85610

== ENCOUNTER → 2023-03-28 10:08 | Outpatient (CLI) | payer MEDICARE, SELFPAY ==
[2023-03-28 12:10] LABS: INR 2.91 (0.9-1.1); Prothrombin Time 29.3 seconds (10.1-12.5)
== END ==
PROVIDERS: Internal Medicine; PCP Family Medicine
DX: I48.0 Paroxysmal atrial fibrillation (principal)
CPT/HCPCS: 36415; 85610

== ENCOUNTER 2023-03-31 18:31 | Emergency (ER) | payer MEDICARE, SELFPAY ==
--- NOTE | 2023-03-31 18:34 | CT_ITS ---
PROCEDURE INFORMATION: Exam: CT Cervical Spine Without Contrast Exam date and time: 03/31/2023 6:57 PM Age: 82 years old Clinical indication: Injury or trauma; Fall TECHNIQUE: Imaging protocol: Computed tomography of the cervical spine without contrast. Radiation optimization: All CT scans at this facility use at least one of these dose optimization techniques: automated exposure control; mA and/or kV adjustment per patient size (includes targeted exams where dose is matched to clinical indication); or iterative reconstruction. REPORTING DATA: Count of CT and Cardiac NM exams in prior 12 months: This patient has received [address] and 0 known cardiac nuclear medicine studies in the 12 months prior to the current study. COMPARISON: CR XR CHEST 2V 10/29/2020 3:30 PM FINDINGS: Bones/joints: No acute fracture. Normal alignment. Mild disc space narrowing and endplate osteophytes at C4-C5, C5-C6 and C6-C7. No significant disc bulge or herniation. No severe spinal canal stenosis. Multilevel facet and uncovertebral joint hypertrophy. Mild left-sided bony foraminal stenosis at C2-C3. Mild bilateral bony foraminal stenosis at C3-C4. Moderate left-sided and mild right-sided bony foraminal stenosis at C4-C5. Mild right-sided bony foraminal stenosis at C5-C6. Lungs: Lung apices are normal. Soft tissues: Unremarkable. IMPRESSION: No acute findings.
--- NOTE | 2023-03-31 18:34 | CT_ITS ---
PROCEDURE INFORMATION: Exam: CT Head Without Contrast Exam date and time: 03/31/2023 6:57 PM Age: 82 years old Clinical indication: Injury or trauma; Additional info: Fall TECHNIQUE: Imaging protocol: Computed tomography of the head without contrast. Radiation optimization: All CT scans at this facility use at least one of these dose optimization techniques: automated exposure control; mA and/or kV adjustment per patient size (includes targeted exams where dose is matched to clinical indication); or iterative reconstruction. REPORTING DATA: Count of CT and Cardiac NM exams in prior 12 months: This patient has received [address] and 0 known cardiac nuclear medicine studies in the 12 months prior to the current study. COMPARISON: No relevant prior studies available. FINDINGS: Brain: Normal. No hemorrhage. Unremarkable white matter. No mass effect. Cerebral ventricles: No ventriculomegaly. Paranasal sinuses: Visualized sinuses are unremarkable. No fluid levels. Mastoid air cells: Visualized mastoid air cells are well aerated. Bones/joints: Unremarkable. No acute fracture. Soft tissues: Unremarkable. IMPRESSION: No acute intracranial abnormality.
[2023-03-31 18:44] VITALS: BP 205/82; PULSE 60; RESP 18; TEMP 36.5; O2SAT 96; BMI 31.0
--- NOTE | 2023-03-31 18:44 | ECG_ITS ---
APPROVED REPORT Exam: Resting ECG HR:61 bpm ECG Measurements Heart Rate 61 AXES [place] 284 P -12 QRSd 154 QRS -53 QT 440 T -20 QTc 444 Conclusion ELECTRONIC ATRIAL PACEMAKER RIGHT BUNDLE BRANCH BLOCK [120+ ms QRS DURATION, UPRIGHT V1, 40+ ms S IN I/aVL/V4/V5/V6] LEFT ANTERIOR FASCICULAR BLOCK [QRS AXIS <= -45, QR IN I, RS IN II] Significant artifact noted ABNORMAL ECG UNCONFIRMED REPORT Electronically signed by : Navdeep Carbajal MD 04/01/2023 14:26:57
--- NOTE | 2023-03-31 18:48 | PC.NURSE ---
rad staff aware of cts ordered stat per dr. lyon r/t pt on blood thinner. rad staff doing contrast on another pt will get pt jacki.
--- NOTE | 2023-03-31 19:06 | HMH.EDGENADL ---
Discharge Plan Disposition Patient Disposition: Home, Self-Care Chief Complaint: Fall Prescriptions Prescriptions: No Action aspirin 81 MG tablet,chewable 81 mg PO DAILY albuterol sulfate [ProAir HFA] 8.5 GM HFA aerosol inhaler 2 puffs inhalation Q6H Xarelto 10 MG tablet 10 mg PO DAILY meclizine 12.5 MG tablet 12.5 mg PO BID baclofen 5 mg tablet 5 mg PO HS Qty: 14 0RF Referrals Follow up/Referrals: Sanchez Castro MD [Primary Care Provider] - See instructions Activity Restrictions/Add. Instructions Additional Instructions/Restrictions: At this time it was felt you are safe to be discharged home. If new or worsening symptoms please do not hesitate to return the emergency department. Clinical Impressions Clinical Impression: Fall, Blunt head trauma, Hematoma of scalp Discharge ED Provider: Oral Langley General Adult HPI General Chief complaint: Fall Stated complaint: [id number] hit head , nausea Time Seen by Provider: 03/31/23 18:45 Mode of Arrival: Ambulatory Source of Information: Patient Limitations: No Limitations Description of Symptoms (Recalled from ER Triage Doc. by RN): Patient on Warafin and fell from a standing position hitting a door frame on her right shoulder and the back of her head. History of Present Illness HPI narrative: Patient is a 82-year-old female with past medical history of atrial fibrillation, pacemaker with anticoagulation on warfarin who presents emergency department for evaluation of a fall. Patient was walking to the bathroom when she fell striking her right shoulder and right posterior head on the door frame prior to arrival, no LOC. There is a knot on the back of her head as well as shoulder pain causing her to present here for continued evaluation. No other acute complaints at this time. Related Data Home Medications Medication Instructions Recorded Confirmed albuterol sulfate 90 mcg/actuation 2 puffs inhalation Q6H SOA 12/19/17 02/28/23 aerosol inhaler (ProAir HFA) aspirin 81 mg chewable tablet 81 mg PO DAILY Blood thinner 12/19/17 02/28/23 rivaroxaban 10 mg tablet (Xarelto) 10 mg PO DAILY Blood thinner 12/19/17 02/28/23 meclizine 12.5 mg tablet 12.5 mg PO BID DIZZINESS 12/29/22 02/28/23 Previous Rx's Medication Instructions Recorded baclofen 5 mg tablet 5 mg PO HS #14 tabs 03/02/23 Allergies Allergy/AdvReac Type Severity Reaction Status Date / Time Penicillins Allergy Verified 12/19/17 18:51 [facility] Disclaimer: The information contained in this section may have been updated after the patient was seen, as this information can be updated by other users. Medical History (Updated 03/31/23 @ 20:00 by Oral Langley MD) Atrial fibrillation COPD (chronic obstructive pulmonary disease) Depression History of heart attack History of pacemaker History of stroke Hyperlipidemia Hypertension Sacroiliitis Surgical History History of tubal ligation Social History (Updated 12/29/22 @ 13:42 by Beronica Guerra RN) Smoking Status: Former smoker alcohol intake: never current occupational status: retired Travel in the last 8 weeks: None ROS Obtained: Yes Systems reviewed as appropriate & no additional complaints except as documented Physical Exam General General appearance: alert and in no apparent distress Head Head exam: normocephalic and other (Hematoma over the posterior vertex, no open wounds) Eye Eye exam: Present PERRL and EOMI ENT ENT exam: Present mucous membranes moist Neck Neck exam: Present normal inspection Chest Chest inspection: Present normal inspection and symmetric chest wall rise Respiratory Respiratory exam: Present normal lung sounds bilaterally; Absent respiratory distress Cardiovascular Cardiovascular exam: Present regular rate and normal rhythm Abdominal Exam Abdominal exam: Present soft; Absent tenderness Extremities Exam
[2023-03-31 19:09] LABS: Chloride 107 mmol/L (98-107); Potassium 4.1 mmoL/L (3.5-5.1); Sodium 140 mmol/L (136-145)
--- NOTE | 2023-03-31 19:09 | XR_ITS ---
PROCEDURE INFORMATION: Exam: XR Right Shoulder Exam date and time: 03/31/2023 7:38 PM Age: 82 years old Clinical indication: Injury or trauma; Fall; Blunt trauma (contusions or hematomas); Shoulder; Right TECHNIQUE: Imaging protocol: Radiologic exam of the right shoulder. Views: 2 or more views. COMPARISON: CT CERVICAL SPINE WO CON 03/31/2023 6:57 PM FINDINGS: Bones/joints: Mild spurring at the margins of the acromioclavicular joint. No acute fracture or dislocation. The glenohumeral joint is unremarkable. Normal bone mineralization. Soft tissues: Normal. IMPRESSION: Mild degenerative changes at the AC joint.
[2023-03-31 19:11] LABS: Blood Urea Nitrogen 14 mg/dl (7-17); Creatinine Clearance Estimated 58 mL/min (50-200); Estimated Glomerular Filt Rate 69 ml/min (>60); GFR (African American) 84 ML/MIN (>60)
[2023-03-31 19:12] LABS: Alanine Aminotransferase 30 U/L (12-78); Albumin Level 4.2 g/dl (3.5-5.0); Albumin/Globulin Ratio 1.3 (1.1-1.8); Alkaline Phosphatase 81 U/L (38-126); Anion Gap 8.1 mEq/L (5-15); Aspartate Amino Transferase 43 U/L (14-36); Bilirubin,Total 0.5 mg/dl (0.2-1.3); Carbon Dioxide 29 mmol/L (22.0-30.0); Globulin 3.2 g/dL (1.3-3.2); Glucose 108 mg/dl (74-100); Total Protein,Serum 7.4 g/dl (6.3-8.2)
[2023-03-31 19:13] LABS: INR 2.61 (0.9-1.1); Prothrombin Time 26.5 seconds (10.1-12.5)
[2023-03-31 19:28] VITALS: BP 178/87; PULSE 59; O2SAT 97
[2023-03-31 19:30] VITALS: BP 187/86; PULSE 60; O2SAT 96
--- NOTE | 2023-03-31 19:36 | PC.NURSE ---
Reoved C Collar per MD Langley. Pt denies pain, other than BP cuff. Valium given at this time per AUG.
[2023-03-31 19:44] LABS: Basophils # 0.1 K/mm3 (0-0.2); Basophils % 1.4 % (0.1-2.0); Eosinophils # 0.5 K/mm3 (0.0-0.4); Eosinophils % 5.7 % (0.1-12.0); Hematocrit 45.4 % (37.0-47.0); Hemoglobin 15.1 g/dL (12.2-16.2); Lymphocytes # 2.7 K/mm3 (0.7-4.5); Mean Corpuscular HGB Conc 33.4 g/dL (31.8-35.4); Mean Corpuscular Hemoglobin 33.7 pg (27.0-31.2); Mean Corpuscular Volume 101.1 fl (81-99); Mean Platelet Volume 10.1 fl (7.4-10.4); Monocytes # 0.7 K/mm3 (0.1-1.0); Monocytes % 8.2 % (1.7-9.3); Neutrophils # 4.3 K/mm3 (1.8-7.8); Neutrophils % 51.8 % (37.0-80.0); Platelet Count 208 K/mm3 (142-424); Red Blood Count 4.49 M/mm3 (4.20-5.40); Red Cell Distribution Width 13.6 % (11.5-17.5); White Blood Count 8.2 K/mm3 (4.8-10.8)
[2023-03-31 20:11] VITALS: BP 169/78; PULSE 60; RESP 18; TEMP 36.9; O2SAT 98
== END 2023-03-31 20:12 | disposition home or self-care (01) ==
PROVIDERS: Emergency Provider Emergency Medicine; PCP Family Medicine
DX: S09.8XXA Other specified injuries of head, initial encounter (principal); S00.03XA Contusion of scalp, initial encounter; J44.9 Chronic obstructive pulmonary disease, unspecified; I10 Essential (primary) hypertension; E78.5 Hyperlipidemia, unspecified; F32.A Depression, unspecified; Z95.0 Presence of cardiac pacemaker; Z86.73 Personal history of transient ischemic attack (TIA), and cerebral infarction without residual deficits; Z79.01 Long term (current) use of anticoagulants; Z87.891 Personal history of nicotine dependence; W18.30XA Fall on same level, unspecified, initial encounter
CPT/HCPCS: 70450; 72125; 73030; 80053; 85025; 85610; 93005; 99285

== ENCOUNTER → 2023-04-15 11:18 | Outpatient (CLI) | payer MEDICARE, SELFPAY ==
[2023-04-15 12:03] LABS: INR 2.03 (0.9-1.1); Prothrombin Time 20.9 seconds (10.1-12.5)
== END ==
PROVIDERS: PCP Family Medicine; Visit Provider Internal Medicine
DX: Z79.01 Long term (current) use of anticoagulants (principal); I48.0 Paroxysmal atrial fibrillation
CPT/HCPCS: 36415; 85610

== ENCOUNTER → 2023-04-28 10:15 | Outpatient (POV) | payer MEDICARE, SELFPAY ==
[2023-04-28 10:23] VITALS: BP 126/70; PULSE 70; RESP 18; BMI 31.0
--- NOTE | 2023-04-28 10:40 | EXP.PAIN.SOA ---
[facility] Pain Management SOAP Note Subjective:: Patient is a pleasant 82-year-old female who presents today for follow-up. We are currently treating the patient for degenerative disc disease of lumbar spine with lumbar radiculopathy symptoms, lumbar facet arthropathy, lumbar spinal stenosis, status post shingles outbreak. Today she rates her pain a 2 out of 10. Patient states that she continues to have pain in her low back and legs with weakness. Patient does describe this as an aching, throbbing sensation with numbness and tingling. She does state the pain interferes with her ability perform activities of daily living such as cooking and cleaning. Patient does state as the day goes on her pain will worsen and get more severe where she cannot do anything but sit and take breaks. Patient is currently managed with diazepam 5 mg twice a day from her PCP and tizanidine 4 mg from our office. She does state however that in the past we did send in a prescription of baclofen and that she feels that the baclofen did do better than the tizanidine. Patient would like to switch back to the baclofen at night. Patient does have a history of pacemaker placement and A-fib. She is on blood thinners that is written by a Dr. Barajas at [facility]. Her Devaughn has been reviewed and is appropriate. Review of Systems: General: No recent weight changes, no fever, no sleep disturbances Respiratory: No cough, no shortness of air, no recurring pulmonary infections Cardiovascular/peripheral vascular: No chest pain, no palpitations, no edema, no shortness of breath Gastrointestinal: No new onset incontinence, normal bowel movements reported Genitourinary: No new onset incontinence Musculoskeletal: Low back pain, bilateral leg pain Psychiatric: [Normal mood/affect] Neurological: [Denies weakness in extremities], [denies balance issues] Objective:: Physical Exam: General: Alert and oriented x3, no acute distress, pleasant and cooperative Lungs: Respirations even and unlabored, symmetrical chest expansion Eyes: PERRL Musculoskeletal: Flexion and extension of lumbar [spine] somewhat guarded secondary to pain, [antalgic gait noted] Neurological: Speech clear, no gross sensory deficit Assessment:: Degenerative disc disease of lumbar spine with lumbar radiculopathy symptoms, lumbar facet arthropathy, lumbar spinal stenosis, status post shingles outbreak Plan:: Patient continues to experience significant pain in her low back and legs with limited range of motion. I have discussed with the patient that she may benefit from lumbar epidural steroid injection. Risk and benefits were discussed with patient and she would like to proceed forward with this plan of care. Patient is currently on blood thinners and we will have to contact her doctor at [facility] to confirm she can stop this medication prior to this injection. I have counseled her that it will be contingent upon her stopping her blood thinners. I will also send in a refill of baclofen 5 mg at bedtime and provide a 1 month supply of this medication. I have counseled her to stop the tizanidine. Patient will be scheduled for a LES I L4-L5 Patient has been instructed to contact the clinic with any concerns before the next appointment. Dr. Morales has reviewed this note and agrees with this plan of care. This note was dictated using voice recognition software and make contain errors or omissions. [facility] Disclaimer: The information contained in this section may have been updated after the patient was seen, as this information can be updated by other users. Medical History (Updated 03/31/23 @ 20:00 by Oral Langley MD) Atrial fibrillation COPD (chronic obstructive pulmonary disease) Depression History of heart attack History of pacemaker History of stroke Hyperlipidemia Hypertension Sacroiliitis Surgical History History of tubal ligation Social Histo
== END | disposition home or self-care (01) ==
PROVIDERS: PCP Family Medicine; Visit Provider Nurse Practitioner Family
DX: M51.16 Intervertebral disc disorders with radiculopathy, lumbar region (principal); M47.26 Other spondylosis with radiculopathy, lumbar region; M48.061 Spinal stenosis, lumbar region without neurogenic claudication; B02.9 Zoster without complications
CPT/HCPCS: 99212; G0463

== ENCOUNTER → 2023-04-29 12:16 | Outpatient (CLI) | payer MEDICARE, SELFPAY ==
[2023-04-29 13:06] LABS: INR 2.47 (0.9-1.1); Prothrombin Time 25.1 seconds (10.1-12.5)
== END ==
PROVIDERS: PCP Family Medicine; Visit Provider Internal Medicine
DX: Z51.81 Encounter for therapeutic drug level monitoring; Z79.01 Long term (current) use of anticoagulants; I48.0 Paroxysmal atrial fibrillation
CPT/HCPCS: 85610

== ENCOUNTER → 2023-05-11 10:13 | Outpatient (CLI) | payer MEDICARE, SELFPAY ==
[2023-05-11 10:54] LABS: INR 1.56 (0.9-1.1); Prothrombin Time 16.4 seconds (10.1-12.5)
== END ==
PROVIDERS: PCP Family Medicine; Visit Provider Internal Medicine
DX: I48.0 Paroxysmal atrial fibrillation (principal)
CPT/HCPCS: 36415; 85610

== ENCOUNTER 2023-09-30 11:06 | Emergency (ER) | payer MEDICARE, SELFPAY ==
--- NOTE | 2023-09-30 11:17 | EXP.UTC ---
Discharge Plan Disposition Patient Disposition: Home, Self-Care Condition: Good Prescriptions Prescriptions: No Action Eliquis 5 mg tablet 5 mg PO BID metoprolol tartrate 50 mg tablet 50 mg PO BID Patient Comments: TAKE 1 TABLET BY MOUTH TWICE DAILY flecainide 100 mg tablet 100 mg PO Q12H Patient Comments: TAKE 1 TABLET BY MOUTH TWICE DAILY diazepam [Valium] 5 mg tablet 5 mg PO BID PRN (Reason: anxiety) 30 Days Qty: 60 1RF losartan 50 mg tablet 50 mg PO DAILY Qty: 30 0RF atorvastatin 40 mg tablet 40 mg PO DAILY Qty: 30 0RF aspirin 81 MG tablet,chewable 81 mg PO DAILY Referrals Follow up/Referrals: Eula Arredondo APRN [Primary Care Provider] - See instructions Activity Restrictions/Add. Instructions Additional Instructions/Restrictions: Return to be rechecked as needed Clinical Impressions Clinical Impression: Anxiety Instructions Patient Instructions: DI for Anxiety -- Adult Discharge ED Provider: Negrita Márquez [facility] General Stated complaint: weakness Time Seen by Provider: 09/30/23 12:19 History of Present Illness Provider Complaint: 83 year old female presents c/o weakness and fatigue. States she is actually feeling better now but when she woke up this morning she felt jittery and weak. She has a history of A fib and states has required a transfusion in the past. She took her Valium a while ago and is feeling better. Onset (ago): hour(s) (3) Relieving factors: none Exacerbating factors: none Associated symptoms: denies other symptoms Treatments prior to arrival: none Related Data Home Medications Medication Instructions Recorded Confirmed aspirin 81 mg chewable tablet 81 mg PO DAILY Blood thinner 12/19/17 09/26/23 apixaban 5 mg tablet (Eliquis) 5 mg PO BID 09/26/23 09/26/23 flecainide 100 mg tablet 100 mg PO Q12H 09/26/23 09/26/23 metoprolol tartrate 50 mg tablet 50 mg PO BID 09/26/23 09/26/23 Previous Rx's Medication Instructions Recorded atorvastatin 40 mg tablet 40 mg PO DAILY #30 tabs 09/22/23 losartan 50 mg tablet 50 mg PO DAILY #30 tabs 09/22/23 diazepam 5 mg tablet (Valium) 5 mg PO BID PRN anxiety 30 days 09/26/23 #60 tabs Allergies Allergy/AdvReac Type Severity Reaction Status Date / Time Penicillins Allergy Verified 09/26/23 15:01 [facility] Disclaimer: The information contained in this section may have been updated after the patient was seen, as this information can be updated by other users. Medical History (Updated 09/30/23 @ 13:17 by LENIN Mireles) Sacroiliitis Depression History of stroke COPD (chronic obstructive pulmonary disease) History of heart attack History of pacemaker Hyperlipidemia Hypertension Atrial fibrillation Surgical History History of tubal ligation Family History (Updated 09/26/23 @ 15:06 by Adriana Adler LPN) Coronary artery disease Father Social History (Updated 09/26/23 @ 15:06 by Adriana Adler LPN) Smoking Status: Former smoker alcohol intake: never substance use type: denies use current occupational status: retired Travel in the last 8 weeks: None ROS Obtained: Yes Systems reviewed as appropriate & no additional complaints except as documented Constitutional Constitutional: Reports fatigue and Reports weakness Neurologic Neurologic: Reports weakness Endocrine Endocrine: Reports fatigue Physical Exam General General appearance: alert and in no apparent distress Head Head exam: normocephalic and other (Hematoma over the posterior vertex, no open wounds) Eye Eye exam: Present PERRL and EOMI ENT ENT exam: Present mucous membranes moist Neck Neck exam: Present normal inspection Chest Chest inspection: Present normal inspection and symmetric chest wall rise Respiratory Respiratory exam: Present normal lung sounds bilaterally; Absent respiratory distress Cardiovascular Cardiovascular exam: Present regular rate and normal rhythm Abdominal Exam Abdominal exam: Present soft; Absent tenderness Extremities Exam Extremities exam: Present normal inspection Neurological Exam Neurological exam: Present alert and CN II-XII intact; Absent motor sensory deficit Psychiatric Psychiatric exam: Present normal affect Skin Skin exam: Present warm and dry Medical Decision Making Devaughn Inquiry Pt receiving controlled substance: No Lab Data 09/30/23 12:40 09/30/23 12:40
[2023-09-30 12:10] VITALS: BP 121/62; PULSE 61; RESP 20; TEMP 36.8; O2SAT 95; BMI 30.2
[2023-09-30 12:58] LABS: Basophils # 0.2 K/mm3 (0-0.2); Basophils % 2.2 % (0.1-2.0); Eosinophils # 0.3 K/mm3 (0.0-0.4); Eosinophils % 3.7 % (0.1-12.0); Hematocrit 48.1 % (37.0-47.0); Hemoglobin 15.5 g/dL (12.2-16.2); Lymphocytes # 1.4 K/mm3 (0.7-4.5); Lymphocytes % 19.2 % (10-50); Mean Corpuscular HGB Conc 32.2 g/dL (31.8-35.4); Mean Corpuscular Hemoglobin 32.7 pg (27.0-31.2); Mean Corpuscular Volume 101.6 fl (81-99); Mean Platelet Volume 9.6 fl (7.4-10.4); Monocytes # 0.5 K/mm3 (0.1-1.0); Monocytes % 7.6 % (1.7-9.3); Neutrophils # 4.8 K/mm3 (1.8-7.8); Neutrophils % 67.2 % (37.0-80.0); Platelet Count 215 K/mm3 (142-424); Red Blood Count 4.74 M/mm3 (4.20-5.40); Red Cell Distribution Width 14.1 % (11.5-17.5); White Blood Count 7.1 K/mm3 (4.8-10.8)
[2023-09-30 13:03] LABS: Alanine Aminotransferase 22 U/L (12-78); Albumin Level 4.1 g/dl (3.5-5.0); Albumin/Globulin Ratio 1.4 (1.1-1.8); Alkaline Phosphatase 86 U/L (38-126); Anion Gap 5.7 mEq/L (5-15); Aspartate Amino Transferase 34 U/L (14-36); Bilirubin,Total 0.8 mg/dl (0.2-1.3); Blood Urea Nitrogen 16 mg/dl (7-17); Calcium 9.8 mg/dl (8.4-10.2); Carbon Dioxide 29 mmol/L (22.0-30.0); Chloride 108 mmol/L (98-107); Creatinine Clearance Estimated 56 mL/min (50-200); Estimated Glomerular Filt Rate 53 ml/min (>60); GFR (African American) 64 ML/MIN (>60); Globulin 2.9 g/dL (1.3-3.2); Glucose 117 mg/dl (74-100); Potassium 4.7 mmoL/L (3.5-5.1); Sodium 138 mmol/L (136-145)
[2023-09-30 13:04] LABS: INR 1.06 (0.9-1.1); Prothrombin Time 11.4 seconds (10.1-12.5)
[2023-09-30 13:14] VITALS: BP 121/62; PULSE 61; RESP 20; TEMP 36.8; O2SAT 95
== END 2023-09-30 13:18 | disposition home or self-care (01) ==
PROVIDERS: Emergency Provider Physician Assistant; PCP Nurse Practitioner Family
DX: R53.1 Weakness (principal); R53.83 Other fatigue; F41.1 Generalized anxiety disorder; I48.0 Paroxysmal atrial fibrillation; I10 Essential (primary) hypertension; E78.5 Hyperlipidemia, unspecified; J44.9 Chronic obstructive pulmonary disease, unspecified; Z95.0 Presence of cardiac pacemaker; Z79.01 Long term (current) use of anticoagulants
CPT/HCPCS: 80053; 85025; 85610; 99212; 99213; G0463

== ENCOUNTER 2024-12-07 11:33 | Outpatient (CLI) | payer MEDICARE, SELFPAY ==
--- NOTE | 2024-12-07 11:36 | XR_ITS ---
FINAL REPORT CLINICAL HISTORY: Knee pain COMPARISON: 12/19/2022 FINDINGS: Two views of the left knee were obtained. There is no acute fracture or dislocation. There is severe joint space narrowing of the medial compartment with moderate spurring. Findings are similar to the previous exam. Mild patellofemoral degenerative changes noted. There is no soft tissue abnormality. IMPRESSION: Stable degenerative changes, advanced within the medial compartment. No acute bony abnormality. Reviewed, Interpreted and Dictated by Shahnaz Tran MD Transcribed by Becky Grey Authenticated and . [facility]
--- NOTE | 2024-12-07 11:36 | XR_ITS ---
FINAL REPORT CLINICAL HISTORY: DDD, low back pain COMPARISON: 12/29/2022 FINDINGS: Three views of the lumbosacral spine were obtained. No fracture is identified. There is moderate diffuse degenerative disc disease. Mild anterolisthesis is noted of L4 on L5. There is moderate facet arthropathy. IMPRESSION: Stable degenerative changes. Reviewed, Interpreted and Dictated by Shahnaz Tran MD Transcribed by Becky Grey Authenticated and [facility]
--- NOTE | 2024-12-07 11:36 | XR_ITS ---
FINAL REPORT CLINICAL HISTORY: Knee pain COMPARISON: 09/08/2022 FINDINGS: Two views of the right knee were obtained. There is no acute fracture or dislocation. There are mild tricompartmental degenerative changes. No joint effusion is noted. There is no soft tissue abnormality. IMPRESSION: Stable degenerative changes without acute bony abnormality. Reviewed, Interpreted and Dictated by Shahnaz Tran MD Transcribed by Becky Grey Authenticated and [facility]
== END 2024-12-07 23:59 | disposition home or self-care (01) ==
LOC: RAD 11:34
PROVIDERS: PCP Nurse Practitioner Family; Visit Provider Internal Medicine
DX: M17.0 Bilateral primary osteoarthritis of knee (principal); M47.816 Spondylosis without myelopathy or radiculopathy, lumbar region
CPT/HCPCS: 72100; 73560

== ENCOUNTER 2025-02-17 13:54 | Emergency (ER) | payer MEDICARE, SELFPAY ==
[2025-02-17 14:05] VITALS: BP 172/93; PULSE 64; RESP 24; TEMP 36.7; O2SAT 96; BMI 28.5
--- NOTE | 2025-02-17 14:07 | HMH.EDGENADL ---
Discharge Plan Disposition Patient Disposition: Home, Self-Care Condition: Good Prescriptions Prescriptions: No Action Eliquis 5 mg tablet 5 mg PO BID metoprolol tartrate 50 mg tablet 50 mg PO BID Patient Comments: TAKE 1 TABLET BY MOUTH TWICE DAILY flecainide 100 mg tablet 100 mg PO Q12H Patient Comments: TAKE 1 TABLET BY MOUTH TWICE DAILY diazepam [Valium] 5 mg tablet 5 mg PO BID PRN (Reason: anxiety) 30 Days Qty: 60 0RF losartan 50 mg tablet 50 mg PO DAILY Qty: 30 0RF atorvastatin 40 mg tablet 40 mg PO DAILY Qty: 90 2RF aspirin 81 MG tablet,chewable 81 mg PO DAILY Referrals Follow up/Referrals: Eula Arredondo APRN [Primary Care Provider, Medical] - See instructions Fan De Oliveira PA [Physician Disability Liaison Officer, Cardiology] - See instructions Activity Restrictions/Add. Instructions Additional Instructions/Restrictions: Today you have a slightly enlarged heart on chest x-ray and an elevated BNP, which could be suggestive of early heart failure. I recommend you follow-up with cardiology. Call them to make an appointment. Return if you develop chest pain or worsening shortness of breath Please follow up with your primary care provider in 2-3 days. Please return to ED if your symptoms worsen, change in location, change in severity, new symptoms develop or if you become concerned for your health. Clinical Impressions Clinical Impression: VILLEGAS (dyspnea on exertion), Fatigue, Cardiomegaly, Elevated brain natriuretic peptide (BNP) level Print Language Print Language: Croatian Discharge ED Provider: Emmanuel Pedroza Adult HPI General Chief complaint: Shortness of Breath/Dyspnea Stated complaint: SOA, weak Time Seen by Provider: 02/17/25 14:07 History of Present Illness HPI narrative: Patient is an 84-year-old female with history of hypertension hyperlipidemia A-fib on Eliquis, permanent pacemaker. She presents today for shortness of breath and dyspnea on exertion. She reports that this has been happening for months, but thought that it was a little bit worse this morning. She is concerned that she may be anemic because she has been anemic in the past and felt like this. She denies any chest pain, lower extremity edema, fevers cough congestion runny nose vomiting diarrhea or lightheadedness or syncope. Related Data Home Medications ?Medication ?Instructions ?Recorded ?Confirmed aspirin 81 mg chewable tablet 81 mg PO DAILY Blood thinner 12/19/17 12/07/24 apixaban 5 mg tablet (Eliquis) 5 mg PO BID 09/26/23 12/07/24 flecainide 100 mg tablet 100 mg PO Q12H 09/26/23 12/07/24 metoprolol tartrate 50 mg tablet 50 mg PO BID 09/26/23 12/07/24 Previous Rx's ?Medication ?Instructions ?Recorded losartan 50 mg tablet 50 mg PO DAILY #30 tabs 09/22/23 atorvastatin 40 mg tablet 40 mg PO DAILY #90 tabs 10/28/23 diazepam 5 mg tablet (Valium) 5 mg PO BID PRN anxiety 30 days 08/27/24 #60 tabs Allergies Allergy/AdvReac Type Severity Reaction Status Date / Time Penicillins Allergy Verified 12/07/24 10:38 [facility] Disclaimer: The information contained in this section may have been updated after the patient was seen, as this information can be updated by other users. Medical History Sacroiliitis Depression History of stroke COPD (chronic obstructive pulmonary disease) History of heart attack History of pacemaker Hyperlipidemia Hypertension Atrial fibrillation Surgical History History of tubal ligation Family History Father Coronary artery disease Social History Smoking Status: Former smoker alcohol intake: never substance use type: denies use current occupational status: retired Travel in the last 8 weeks?: None Have you lived/traveled outside US in past 30 days?: No Contact w/someone who lives/traveled outside US past 30 days?: No Exposure to someone with infectious disease in past 14 days?: No Do you have a fever (greater than 100.4 F or 38 C)?: No Have you tested positive for COVID-19?: No Exposed to someone with COVID-19 in past 14 days?: No Do you have a sore throat?: No Do you have a cough?: No Do you have any weakness?: Yes Do you have any diarrhea?: No Are you experiencing any unusual bleeding?: No Do you have any muscle aches/pain?: No Do you have any abdominal pain?: No Are you experiencing loss of taste or smell?: No Other Medical History Have you received the Flu Vaccine for this season: No Have you received the Pneumonia Vaccine: No ROS Obtained: Yes All systems reviewed & no additional complaints except as documented Physical Exam General General appearance: alert and in no apparent distress Head Head exam: atraumatic and normocephalic Eye Eye exam: Present PERRL and EOMI ENT ENT exam: Present normal oropharynx Neck Neck exam: Present full ROM and trachea midline Chest Chest inspection: Present symmetric chest wall rise Respiratory Respiratory exam: Present normal lung sounds bilaterally; Absent respiratory distress, wheezes, stridor, accessory muscle use or prolonged expiratory phase Cardiovascular Cardiovascular exam: Present regular rate and normal rhythm Abdominal Exam Abdominal exam: Present soft; Absent distention or tenderness Extremities Exam Extremities exam: Present full ROM Neurological Exam Neurological exam: Present alert and oriented X3 Psychiatric Psychiatric exam: Present normal mood Skin Skin exam: Present warm and dry Medical Decision Making Medical Records Screening: Per USPSTF and CDC recommendations, given the prevalence of disease in our region, it is our hospital?s policy to screen for HIV and viral Hepatitis for all patients aged 18 and over and those with ongoing risk factors. Devaughn Inquiry Pt receiving controlled substance: No Vital Signs: 02/17/25 14:05 02/17/25 14:30 02/17/25 15:00 Temperature 98.1 F Temperature Source Oral Pulse Rate 62 60 Pulse Rate [Right] 64 Respiratory Rate 24 Blood Pressure 190/103 H 181/112 H Blood Pressure [Right Arm] 172/93 H Blood Pressure Mean [Right Arm] 119 Blood Pressure Source Blood Pressure Position 02 Sat by Pulse Oximetry 96 99 97 Oxygen Delivery Method Room Air 02/17/25 15:42 Temperature 98 F Temperature Source Oral Pulse Rate 61 Pulse Rate [Right] Respiratory Rate 16 Blood Pressure 188/105 H Blood Pressure [Right Arm] Blood Pressure Mean [Right Arm] Blood Pressure Source Automatic Cuff Blood Pressure Position Sitting 02 Sat by Pulse Oximetry Oxygen Delivery Method Room Air Lab Data Lab Results 02/17/25 14:05: WBC 6.4, RBC 4.43, Hgb 14.8, Hct 42.7, MCV 96.4, MCH 33.4 H, MCHC 34.7, RDW 12.9, Plt Count 183, MPV 11.7 H, Neut % (Auto) 58.8, Lymph % (Auto) 22.7, [place] % (Auto) 11.2 H, Eos % (Auto) 5.2, Baso % (Auto) 1.9, Neut # (Auto) 3.7, Lymph # (Auto) 1.4, [place] # (Auto) 0.7, Eos # (Auto) 0.3, Baso # (Auto) 0.1, PT 11.9, INR 1.08, D-Dimer 0.58 H, VBG pH 7.37, VBG pCO2 38.0, VBG pO2 58.8 H, VBG HCO3 21.3 L, VBG Total CO2 22.5 L, VBG O2 Saturation 90.7 H, VBG Base Excess -4.0 L, VBG Lactic Acid 1.4, Sodium 140, Potassium 4.5, Chloride 111 H, Carbon Dioxide 23, Anion Gap 10.5, BUN 16, Creatinine 0.90, Estimated Creat Clear 52, Estimated GFR 60, Est GFR ( Amer) 73, Glucose 115 H, Calcium 9.9, Magnesium 1.6, Total Bilirubin 0.7, AST 28, ALT 18, Alkaline Phosphatase 81, Troponin I < 0.01, NT-Pro-B Natriuret Pep 1370 H, Total Protein 7.0, Albumin 4.2, Globulin 2.8, Albumin/Globulin Ratio 1.5 02/17/25 14:05 02/17/25 14:05 Orders (Tests/Meds): ORDERS Category Date Time Status XR chest portable Stat Exams 02/17/25 14:23 Taken BNP [NT Pro Brain Natriuretic Pep.] Stat Lab 02/17/25 14:05 Completed Complete Blood Count Auto Diff Stat Lab 02/17/25 14:05 Completed Comprehensive Metabolic Panel Stat Lab 02/17/25 14:05 Completed D-Dimer Stat Lab 02/17/25 14:05 Completed HIV Combo Stat Lab 02/17/25 14:05 Received Hepatitis C Ab Qual. W/ RFX Stat Lab 02/17/25 14:05 Received MAG [Magnesium] Stat Lab 02/17/25 14:05 Completed PT INR [Prothrombin Time INR] Stat Lab 02/17/25 14:05 Completed Trop I [Troponin I] Stat Lab 02/17/25 14:05 Completed Troponin I Q3H Lab 02/17/25 17:30 Ordered Troponin I Q3H Lab 02/17/25 20:30 Ordered VBG [Venous Blood Gas] Stat RT 02/17/25 14:05 Completed ECG Data Tracing #1: Independently interpreted by myself demonstrate an atrially paced rhythm with no obvious acute ischemic ST changes when applying Sgarbossa criteria. Medical Decision Narrative: In summary, this 84-year-old female presents to the emergency department today with shortness of breath. On initial evaluation patient is afebrile, hemodynamically stable and in no acute distress on room air. She is hypertensive with systolics in the 190s. On exam, is warm and well-perfused full pulses brisk Apley refill no lower extremity edema. Heart is regular rate and rhythm and lung sounds are clear to auscultation bilaterally. She is resting comfortably. She reports that her shortness of breath has been going on for a long time, but may be slightly worse now. Broad hematologic lab workup including ruling out ACS, PE. Less suspicious for viral process given chronicity and no obvious infectious symptoms nor sick contacts. Given her comorbidities, heart failure is on the differential as well.. Labs personally reviewed demonstrate no evidence of anemia, no leukocytosis, no JERED. VBG within normal limits. Troponin negative. Her BNP is elevated at 1370, unfortunately we do not have a baseline. I independently interpreted her chest x-ray to demonstrate cardiomegaly with some mild pulm vascular congestion without pleural effusions. I suspect that she has got early CHF. However, she is on room air here resting comfortably and ambulatory by the emergency department without any difficulties. I will defer her to cardiology for definitive treatment. She also has a good relationship with her PCP and will follow-up in the coming days. Offered admission, but she feels more comfortable managing at home and outpatient which is felt to be reasonable. At this time it was felt that the patient was safe to be discharged home. The patient was in agreement with this plan. The patient was given strict return precautions prior to being discharged from the emergency department. Critical Care Critical Care Time Critical Care Time: No
--- NOTE | 2025-02-17 14:08 | ECG_ITS ---
APPROVED REPORT Exam: Resting ECG HR:60 bpm ECG Measurements Heart Rate 60 AXES OH 315 P 257 QRSd 174 QRS -74 QT 440 T 10 QTc 440 Conclusion ELECTRONIC ATRIAL PACEMAKER RIGHT BUNDLE BRANCH BLOCK [120+ ms QRS DURATION, UPRIGHT V1, 40+ ms S IN I/aVL/V4/V5/V6] LEFT ANTERIOR FASCICULAR BLOCK [QRS AXIS <= -45, QR IN I, RS IN II] POSSIBLE ANTERIOR MYOCARDIAL INFARCTION , OF INDETERMINATE AGE [30 ms Q WAVE IN V3/V4, OR R < 0.2 mV IN V4] ABNORMAL ECG UNCONFIRMED REPORT Electronically signed by : Emmanuel Pedroza, 02/17/2025 16:09:28
--- OUTSIDE RECORDS SUMMARY | 2025-02-17 14:21 | XMS_ITS | Clinical Summary ---
Author Organization [facility] Address [address] [place] [address] Care Team Providers Care Education Trainer Name Role Phone Eula Arredondo APRN Primary Care Provider [phone] Allergies Active Allergy Reactions Criticality Noted Date Comments Penicillins Hives Medium 11/06/2020 Valacyclovir Other (See Comments) 01/06/2023 Unable to tolerate, shakes, unable to urinate Medications diazePAM (VALIUM) 5 MG tablet Take 1 tablet by mouth 2 (Two) Times a Day As Needed for Anxiety. Active diphenhydrAMINE (BENADRYL) 25 MG tablet Take 1 tablet by mouth At Night As Needed for Sleep or Allergies. OTC Active aspirin 81 MG EC tablet Take 1 tablet by mouth Daily. OTC 03/17/2023 Active apixaban (Eliquis) 5 MG tablet tablet Take 1 tablet by mouth 2 (Two) Times a Day. Active flecainide (TAMBOCOR) 100 MG tablet Take 1 tablet by mouth 2 (Two) Times a Day. 180 tablet 3 07/18/2024 Active losartan (Cozaar) 25 MG tablet Take 1 tablet by mouth Daily. 90 tablet 3 07/18/2024 Active atorvastatin (LIPITOR) 40 MG tablet Take 1 tablet by mouth Every Night. 90 tablet 4 07/18/2024 Active metoprolol tartrate (LOPRESSOR) 50 MG tablet Take 1 tablet by mouth 2 (Two) Times a Day. 180 tablet 3 07/18/2024 Active Active Problems Problem Noted Date Diagnosed Date Spell of change in speech 06/22/2022 Tachy-fermín syndrome 09/29/2021 Overview (09/29/2021): Added automatically from request for surgery [id number] Paroxysmal atrial fibrillation 11/06/2020 PAD (peripheral artery disease) 11/05/2020 Overview (11/05/2020): 06/17/17 drug- coated balloon angioplasty to the right popliteal artery. CAROLYNN grade 3 flow. 05/26/17- Right popliteal artery contains 99% stenosis, left lower extremity is free of disease. 04/08/17 Abdominal aorta u/s- no evidence of AAA, RCIA has 50-75% stenosis. 04/08/17 Arterial duplex- Right SWAPNA= 0.75, left SWAPNA= 0.81 A-fib 11/04/2020 Overview (09/21/2021): 05/27/17 successful cardioversion to NSR 12/07/17 Echo: LVEF 55-60%, left atrial volume index moderately increased, no evidence of pulmonary hypertension RVSP= 29 04/21/17 Echo: LVEF 65-70%, findings suggest mild pulmonary hypertension. 11/19/2020: JESUS/ECV at [facility], moderate to severe biatrial enlargement, no left atrial appendage clot. EF 51-55 %, successful cardioversion. SOB (shortness of breath) 11/04/2020 Overview (01/06/2021): 12/18/20 Stress test: No evidence of ischemia, LVEF 59%, low risk 04/08/17 Cardiac PET: No evidence of ischemia, rest and stress LV function were normal. Hyperlipidemia LDL goal <100 11/04/2020 Essential hypertension 11/04/2020 Family History Medical History Relation Name Comments Heart attack Brother Heart attack Father Heart attack Mother Aneurysm Sister Relation Name Status Comments Brother Father Mother Sister Social History Tobacco Use Types Packs/Day Years Used Date Smoking Tobacco: Former Cigarettes 0.3 62 0 02/24/1959 - 02/24/2021 Smokeless Tobacco: Never Tobacco Cessation:Counseling Given: Not Answered Alcohol Use Standard Drinks/Week Comments Never 0 (1 standard drink = 0.6 oz pur e alcohol) AUDIT-C Answer Date Recorded Q1: How often do you have a drink containing alcohol? Never 06/22/2022 Q2: How many drinks containi ng alcohol do you have on a typical day when you are drinking? Patient does not drink Q3: How often do you have si x or more drinks on one occasion? Never 06/22/2022 Abuse Screen Answer Date Recorded Feels Unsafe at Home or Work/School no 06/22/2022 Feels Threatened by Someone no 06/13 Does Anyone Try to Keep You From Having Contact with Others or Doing Things Outside Your Home? no 06/22/2022 Physical Signs of Abuse Present no 06/22/2022 Housing Stability Answer Date Recorded Current Living Arrangements home 06/13 Potentially Unsafe Housing Conditions Not on juan e 06/22/2022 Disabilities Answer Date Recorded Difficulty Concentrating, Remembering or Making Decisions no 06/22/2022 Difficulty Managing Errands Independently yes 06/22/2022 Education Answer Date Recorded Help with school or training? Not on file Preferred Language Hong Konger 06/22/2022 Comments No Sex and Gender Information Value Date Recorded Sex Assigned at Not on file Legal Sex Female 11:14 AM EDT Gender Identity Not on file Sexual Orientation Not on file Last Filed Vital Signs Vital Sign Reading Time Taken Comments Blood Pressure 110/60 10/18/2024 9:51 AM EDT Pulse 81 10/18/2024 9:51 AM EDT Temperature 36.4 C (97.5 F) 06/24/2022 7:21 AM EST Respiratory Rate 18 06/24/2022 12:00 PM EST Oxygen Saturation 97% 10/18/2024 9:51 AM EDT Inhaled Oxygen Concentration - - Weight 79.4 kg (175 lb) 10/18/2024 9:51 AM EDT Height 165.1 cm (5' 5 ) 10/18/2024 9:51 AM EDT Body Mass Index 29.12 10/18/2024 9:51 AM EDT Plan of Treatment Upcoming Encounters Date Type Department Care Team (Late st Contact Info) Description 08/06/2025 10:15 AM EST Office Visit [facility] [address] [phone] Rick Schuster MD [address] [facility] [address] [place] [id number] 10/24/2025 11:00 AM EDT Office Visit [facility] [address] [facility] [address] [place] [phone] Kristen Spears PA-C [address] [facility] [address] [place] [address] Health Maintenance Due Date Last Done Comments DXA SCAN 1942 Pneumococcal Vaccine 50+ (1 of 2 - PCV) 1961 TDAP/TD VACCINES (1 - Tdap) 1961 ZOSTER VACCINE (1 of 2) 1992 RSV Vaccine - Adults (1 - 1- dose 75+ series) 2017 ANNUAL WELLNESS VISIT 11/04/2020 LIPID PANEL 06/23/2023 06/23/2022, 10/11, 10/16/2020, Additional history exists COVID-19 Vaccine (2 - 2023-2 5 season) 2024 10/30/2020 INFLUENZA VACCINE 03/13/2025 Medical Devices Implanted Type Area Photoresist Contact Printer Device Identifier Shelf Expiration Date Model / Serial / Lot Ld Pace Ingevitypls Mri Act/Fix Bipol Atrial/Vnt Str 59cm - [id number] - [id number] Implanted:Qty: 1 on 10/09/2021 by Rick Schuster MD at [facility] Lead [employer] 07/10/2023 [id number] / [id number] / Ld Pace Ingevitypls Mri Act/Fix Bipol Atrial/Vnt Str 52cm - [id number] - [id number] Implanted:Qty: 1 on 10/09/2021 by Rick Schuster MD at [facility] Lead [employer] 07/15/2023 [id number] / [id number] / Pm Accolade Dr/El Mri 4.45x5.88x.75cm 15.8cc - [id number] Implanted:Qty: 1 on 10/09/2021 by Rick Schuster MD at [facility] Pacemaker [employer] 07/09/2023 [id number] / / [id number] Procedures Procedure Name Priority Date/Time Associated Diagnosis Comments REMOTE DEVICE CHECK 01/16/2025 2 :00 AM EDT LIPID PANEL Routine 06/23/2022 12:09 PM EST from Last 3 Months or Most Recently Relevant to Health Maintenance Results * Remote Device Check (01/16/2025 2:00 AM EDT) Date Time Interrogation Session [id number] [facility] Type Interrogation Session Remote Scheduled [facility] Implantable Pulse Generator Photoresist Contact Printer Think Silicon [facility] Implantable Pulse Generator Type IPG [facility] Implantable Pulse Generator Model [id number] [facility] Implantable Pulse Generator Serial Number [id number] [facility] Implantable Pulse Generator Implant Date [id number] [facility] Battery Remaining Percentage 100.00 % [facility] Battery Remaining Longevity 138.0 mo [facility] Battery Status Beginning of Service [facility] [place] Statistic RA Percent Paced 100.00 [facility] [place] Statistic RV Percent Paced 35.00 [facility] Atrial Tachy Statistic AT/AF [place] Percent 1.00 [facility] Lead Channel Setting RA Sensing Sensitivity 0.25 [facility] Lead Channel RA Impedance Value 515 [facility] Lead Channel RA Measurements Date and Time [id number] [facility] Lead Channel Setting RA Pacing Amplitude 2.000 [facility] Lead Channel Setting RA Pacing Pulse Width 0.4 [facility] Lead Channel RV Sensing Intrinsic Amplitude 4.000 [facility] Lead Channel Setting RV Sensing Sensitivity 0.60 [facility] Lead Channel RV Impedance Value 619 [facility] Lead Channel RV Measurements Date and Time 20250115 [facility] Lead Channel Setting RV Pacing Amplitude 2.500 [facility] Lead Channel Setting RV Pacing Pulse Width 0.4 [facility] [place] Setting Mode (NBG Code) DDDR [facility] [place] Setting Lower Rate Limit 60 [facility] [place] Setting AT Mode Switch Rate 170 [facility] [place] Setting Maximum Tracking Rate 130 [facility] [place] Setting Maximum Sensor Rate 130 [facility] [place] Setting PAV Delay 220 [facility] [place] Setting GEOFF Delay 220 [facility] Lead Channel Setting RA Sensing Polarity Bipolar [facility] Lead Channel Setting RV Sensing Polarity Bipolar [facility] Lead Channel Setting RA Pacing Polarity Bipolar [facility] Lead Channel Setting RV Pacing Polarity Bipolar [facility] Lead Channel RA Pacing Threshold Polarity Bipolar [facility] Lead Channel RV Pacing Threshold Polarity Bipolar [facility] Zone Setting Type Category VT [facility] IDC RATE 1 160 [facility] Zone Setting Status Monitor [facility] Zone ID 1 [facility] 01/16/2025 2:00 AM EDT us Rick Schuster MD CV IMPLANTABLE CARDIAC DEVICE Fi nal Result [facility] * Lipid Panel (06/23/2022 12:09 PM EST) Total Cholesterol 121 0 - 200 mg/dL 06/23/2022 1:21 PM EST [facility] Triglycerides 104 0 - 150 mg/dL 06/23/2022 1:21 PM EST [facility] HDL Cholesterol 50 40 - 60 mg/dL 06/23/2022 1:21 PM EST [facility] LDL Cholesterol 52 0 - 100 mg/dL 06/23/2022 1:21 PM EST [facility] VLDL Cholesterol 19 5 - 40 mg/dL 06/23/2022 1:21 PM EST [facility] LDL/HDL Ratio 1.00 06/23/2022 1:21 PM EST [facility] Blood Venipuncture / Unknown 06/23/2022 12:09 PM EST 06/23/2022 12:57 PM EST Narrative [facility] - 06/23/2022 1:21 PM EST Cholesterol Reference Ranges (U.S. Department of Health and Human Services ATP III Classifications) Desirable <200 mg/dL Borderline High 200-239 mg/dL High Risk >240 mg/dL Triglyceride Reference Ranges (U.S. Department of Health and Human Services ATP III Classifications) Normal <150 mg/dL Borderline High 150-199 mg/dL High 200-499 mg/dL Very High >500 mg/dL HDL Reference Ranges (U.S. Department of Health and Human Services ATP III Classifications) Low <40 mg/dl (major risk factor for CHD) High >60 mg/dl ('negative' risk factor for CHD) LDL Reference Ranges (U.S. Department of Health and Human Services ATP III Classifications) Optimal <100 mg/dL Near Optimal 100-129 mg/dL Borderline High 130-159 mg/dL High 160-189 mg/dL Very High >189 mg/dL Marisela Ivey APRN LAB BLOOD ORDERABLES Final R esult [facility]
[address] [place] [address], from Last 3 Months or Most Recently Relevant to Health Maintenance Insurance MEDICARE A & B Advance Directives * No CPR (Do Not Attempt to Resuscitate) (Latest Code Status on File) Date Activated Date Inactivated Comments 06/22/2022 6:44 PM 06/24/2022 5:12 PM Question Answer Comments Code Status (Patient has no pulse and is not breathing): No CPR (Do Not Attempt to Resuscitate) Medical Interventions (Patie nt has pulse or is breathing): Limited Support Medical Intervention Limits: NO intubation (DNI) * CPR (Attempt to Resuscitate) Date Activated Date Inactivated Comments 06/22/2022 12:24 PM 06/22/2022 6:44 PM Question Answer Comments Code Status (Patient has no pulse and is not breathing): CPR (Attempt to Resuscitate) Medical Interventions (Patie nt has pulse or is breathing): Full Support Care Teams Education Trainer Relationship Specialty Start Date End Date Eula Arredondo APRN [address] [address] PCP - General Internal Medicine 01/19/24
[2025-02-17 14:23] LABS: Hematocrit 42.7 % (37.0-47.0); Hemoglobin 14.8 g/dL (12.2-16.2); Immature Granulocytes % 0.2 %; Mean Corpuscular HGB Conc 34.7 g/dL (31.8-35.4); Mean Corpuscular Hemoglobin 33.4 pg (27.0-31.2); Mean Corpuscular Volume 96.4 fl (81-99); Nucleated Red Blood Cells % 0 %; Platelet Count 183 K/mm3 (142-424); Red Blood Count 4.43 M/mm3 (4.20-5.40); Red Cell Distribution Width-SD 46.1 fL; White Blood Count 6.4 K/mm3 (4.8-10.8)
--- NOTE | 2025-02-17 14:23 | XR_ITS ---
PROCEDURE INFORMATION: Exam: XR Chest Exam date and time: 02/17/2025 2:46 PM Age: 84 years old Clinical indication: Shortness of breath; Additional info: SOB TECHNIQUE: Imaging protocol: Radiologic exam of the chest. Views: 1 view. COMPARISON: CR XR CHEST 2V 10/29/2020 3:30 PM FINDINGS: Tubes, catheters and devices: Dual-chamber cardiac pacemaker in place. Lungs: Unremarkable. No consolidation. Pleural spaces: Unremarkable. No pleural effusion. No pneumothorax. Heart/Mediastinum: Unremarkable. No cardiomegaly. Vasculature: Mild atherosclerotic calcification of the thoracic aorta. Bones/joints: Unremarkable. IMPRESSION: No acute findings.
[2025-02-17 14:25] LABS: Albumin Level 4.2 g/dl (3.5-5.0); Chloride 111 mmol/L (98-107); Sodium 140 mmol/L (136-145)
[2025-02-17 14:26] LABS: Potassium 4.5 mmoL/L (3.5-5.1)
[2025-02-17 14:28] LABS: Alanine Aminotransferase 18 U/L (12-78); Albumin/Globulin Ratio 1.5 (1.1-1.8); Alkaline Phosphatase 81 U/L (38-126); Anion Gap 10.5 mEq/L (5-15); Aspartate Amino Transferase 28 U/L (14-36); Bilirubin,Total 0.7 mg/dl (0.2-1.3); Blood Urea Nitrogen 16 mg/dl (7-17); Carbon Dioxide 23 mmol/L (22.0-30.0); Creatinine Clearance Estimated 52 mL/min (50-200); Creatinine,Serum 0.90 mg/dl (0.52-1.04); Estimated Glomerular Filt Rate 60 ml/min (>60); GFR (African American) 73 ML/MIN (>60); Globulin 2.8 g/dL (1.3-3.2); Lactate Venous 1.4 mmol/L (0.4-2.0); Total Protein,Serum 7.0 g/dl (6.3-8.2); VBG HCO3 21.3 mmol/L (23-30); VBG PCO2 38.0 mmol/L (35-51); VBG PH 7.37 mmol/L (7.31-7.41); VBG PO2 58.8 mmol/L (28-40)
[2025-02-17 14:29] LABS: Calcium 9.9 mg/dl (8.4-10.2); Glucose 115 mg/dl (74-100)
[2025-02-17 14:30] VITALS: BP 190/103; PULSE 62; O2SAT 99
[2025-02-17 14:36] LABS: Magnesium 1.6 mg/dl (1.6-2.3)
[2025-02-17 14:38] LABS: NT Pro Brain Natriuretic Pep. 1370 pg/mL (0-450)
[2025-02-17 14:39] LABS: INR 1.08 (0.9-1.1); Prothrombin Time 11.9 seconds (10.1-12.5)
[2025-02-17 15:00] VITALS: BP 181/112; PULSE 60; O2SAT 97
[2025-02-17 15:00] LABS: Troponin I < 0.01 ng/ml (0.00-0.034)
[2025-02-17 15:08] LABS: D-Dimer 0.58 ug/mL (0.0-0.5)
[2025-02-17 15:42] VITALS: BP 188/105; PULSE 61; RESP 16; TEMP 36.6; O2SAT 95
[2025-02-17 15:55] LABS: Hepatitis C Ab Qual. W/ RFX NEGATIVE (Negative)
== END 2025-02-17 15:43 | disposition home or self-care (01) ==
PROVIDERS: Emergency Provider Emergency Medicine; PCP Nurse Practitioner Family
DX: R06.09 Other forms of dyspnea (principal); R79.89 Other specified abnormal findings of blood chemistry; I51.7 Cardiomegaly; R53.83 Other fatigue; I10 Essential (primary) hypertension; E78.5 Hyperlipidemia, unspecified; I48.91 Unspecified atrial fibrillation
CPT/HCPCS: 71045; 80053; 82803; 83735; 83880; 84484; 85025; 85378; 85610; 86803; 87389; 93005; 99284; 99285

== ENCOUNTER 2025-04-08 13:30 | Outpatient (CLI) | payer MEDICARE, SELFPAY ==
--- OUTSIDE RECORDS SUMMARY | 2025-04-04 11:00 | XMS_ITS | Encounter Summary ---
Author Organization [facility] Address [address] [id number] Care Team Providers Care Nail Kegger Name Role Phone Eula Arredondo APRN Primary Care Provider [phone] Reason for Referral * Diagnostic Imaging (Routine) - Closed Specialty Diagnoses / Procedures Referred By Contac t Referred To Contact Diagnoses Tachy-anahi syndrome Paroxysmal atrial fibrillation SOB (shortness of breath) Procedures Adult Transthoracic Echo Complete W/ Cont if Necessary Per Protocol Michael Barajas MD [address] [place] [address] Phone: tel: fax: [address] [phone] Phone: tel: Referral ID Status Reason Start Date Expiration Date Visits Re quested Visits Authorized [id number] Closed 10/18/2024 01/17/2026 1 1 Reason for Visit * Diagnostic Imaging (Routine) - Closed Specialty Diagnoses / Procedures Referred By Contac t Referred To Contact Diagnoses Tachy-anahi syndrome Paroxysmal atrial fibrillation SOB (shortness of breath) Procedures Adult Transthoracic Echo Complete W/ Cont if Necessary Per Protocol Michael Barajas MD [address] [place] [address] Phone: tel: fax: [address] [phone] Phone: tel: Referral ID Status Reason Start Date Expiration Date Visits Re quested Visits Authorized [id number] Closed 10/18/2024 01/17/2026 1 1 Encounter Details Date Type Department Care Team (Late st Contact Info) Description 04/04/2025 11:00 AM EDT - 04/04/2025 11:59 PM EDT Hospital Encounter [facility] LAB [address] [facility] [address] [place] [address] Michael Barajas MD [address] [place] [id number] Tachy-anahi syndrome; Paroxysmal atrial fibrillation; SOB (shortness [...] or training? Not on file Preferred Language Uzbek 06/22/2022 Comments No Sex and Gender Information [...] Description 08/06/2025 10:15 AM EST Office Visit [facility] CARDIOLOG[facility] [address] [facility] [address] [place] [address] Rick Schuster MD [address] [facility] [address] [place] [address] 10/24/2025 11:00 AM EDT Office Visit [facility] [address] [place] [address] Kristen Spears PA-C [address] [place] [address] documented as of this encounter [...] E' Kevin 7.0 cm/sec Lat Peak E' Kevin 9.3 cm/sec TR max kevin 257.3 cm/sec [...] breath documented in this encounter Care Teams Nail Kegger Relationship Specialty Start Date End Date Eula Arredondo APRN [address] [place] [address] PCP - General Internal Medicine 01/19/24 documented as of this encounter
--- OUTSIDE RECORDS SUMMARY | 2025-04-04 13:00 | XMS_ITS | Encounter Summary ---
Author Organization [facility] Address [address] [place] [address] Care Team Providers Care Fine Hairer Name Role Phone Eula Arredondo APRN Primary Care Provider [phone] Reason for Visit * Reason Comments Paroxysmal atrial fibrillation Encounter Details Date Type Department Care Team (Late st Contact Info) Description 04/04/2025 1:00 PM EDT Office Visit [facility] C[facility] [address] [facility] [address] [place] [address] Michael Barajas MD 1720 [facility] [address] [place] [address] Paroxysmal atrial fibrillation (Primary Dx); Hyperlipidemia LDL [...] or training? Not on file Preferred Language Zimbabwean 06/22/2022 Comments No Sex and Gender Information [...] 04/04/2025 1:00 PM EDT OFFICE VISIT NOTE [facility] C[facility] Name: Emilee Rebollar [...] BB due to sinus bradycardia. Ultimately had [place] PPM implanted by Dr. Schuster09/2021. admitted 06/24/22 with transient aphasia, MRI with no acute infarct. Due to increasing worsening shortness of breath went to [facility] ER 02/15/2025, only abnormality was elevated [...] DNS meds; Surgeon: Rick Schuster MD; Location: [facility]; Service: Cardiology; Laterality: N/A; COLONOSCOPY [...] Overview Added automatically from request for surgery [id number] Relevant Medications metoprolol tartrate (LOPRESSOR) 25 MG tablet flecainide (TAMBOCOR) 50 MG tablet Chronic heart failure with preserved ejection fraction (HFpEF) Relevant Medications metoprolol tartrate (LOPRESSOR) 25 MG tablet flecainide (TAMBOCOR) 50 MG tablet PLAN: 1. Paroxysmal atrial fibrillation/ Tachy-anahi syndrome S/p [employer] PPM 09/2021 with recent interrogation in EP [...] in about 6 months (around 10/03/2025). Michael Barajas MD, [facility] Interventional Cardiology documented in this encounter Plan of Treatment Upcoming Encounters Date Type Department Care Team (Late st Contact Info) Description 08/06/2025 10:15 AM EST Office Visit [facility] CARDIOLOGY [address] [place] [phone] Rick Schuster MD [address] [place] [id number] 10/24/2025 11:00 AM EDT Office Visit [facility] CARDI[facility] [address] [address] Kristen Spears PA-C 1720 [facility] [address] [address] documented as of this encounter Visit Diagnoses Diagnosis Paroxysmal atrial fibrillation- Primary Atrial fibrillation Hyperlipidemia LDL goal <100 Other and unspecified hyperlipidemia Tachy-anahi syndrome Sinoatrial node dysfunction Essential hypertension Unspecified essential hypertension Chronic heart failure with preserved ejection fraction (HFpEF) documented in this encounter Care Teams Fine Hairer Relationship Specialty Start Date End Date Eula Arredondo APRN [address] [place] [address] PCP - General Internal Medicine 01/19/24 documented as of this encounter
--- OUTSIDE RECORDS SUMMARY | 2025-04-09 15:02 | XMS_ITS | Clinical Summary ---
Author Organization [facility] Address [address] [place] [address] Care Team Providers Care Digital Solutions Architect Name Role Phone Eula Arredondo APRN Primary Care Provider [phone] Allergies Active Allergy Reactions Criticality Noted Date [...] Take 1 tablet by mouth Daily. OTC 3 Active apixaban (Eliquis) 5 MG tablet tablet Take 1 tablet by mouth 2 (Two) Times a Day. Active losartan (Cozaar) 25 MG tablet Take 1 tablet by mouth Daily. 90 tablet 3 5 Active atorvastatin (LIPITOR) 40 MG tablet Take 1 tablet by mouth Every Night. 90 tablet 4 5 Active metoprolol tartrate (LOPRESSOR) 25 MG tablet Take 1 tablet by mouth 2 (Two) Times a Day. 180 tablet 1 5 Active flecainide (TAMBOCOR) 50 MG tablet Take 1 tablet by mouth 2 (Two) Times a Day. 180 tablet 1 5 Active flecainide (TAMBOCOR) 100 MG tablet Take 1 tablet by mouth 2 (Two) Times a Day. 180 tablet 3 04/04/20 Discontinu ed(Reorder ) metoprolol tartrate (LOPRESSOR) 50 MG tablet Take 1 tablet by mouth 2 (Two) Times a Day. 180 tablet 3 04/04/20 Discontinu ed(Reorder ) Active Problems Problem Noted Date Diagnosed Date Chronic heart failure with p reserved ejection fraction (HFpEF) 04/04/2025 Spell of change in speech 06/22/2022 Tachy-fermín syndrome 09/29/2021 Overview (09/29/2021): Added automatically from request for surgery [id number] Paroxysmal atrial fibrillation 11/06/2020 PAD (peripheral artery disease) 11/05/2020 Overview (11/05/2020): 06/17/17 drug- coated balloon angioplasty to the right popliteal artery. CAROLYNN grade 3 flow. 05/26/17- Right popliteal artery contains 99% stenosis, left lower extremity is free of disease. 04/08/17 Abdominal aorta u/s- no evidence of AAA, RCIA has 50-75% stenosis. 04/08/17 Arterial duplex- Right SWAPNA= 0.75, left SWAPNA= 0.81 SOB (shortness of breath) 11/04/2020 Overview (01/06/2021): 12/18/20 Stress test: No evidence of ischemia, LVEF 59%, low risk 04/08/17 Cardiac PET: No evidence of ischemia, rest and stress LV function were normal. Hyperlipidemia LDL goal <100 11/04/2020 Essential hypertension 11/04/2020 Resolved Problems Problem Noted Date Diagnosed Date Resolved Date A-fib 11/04/2020 04/04/2025 Overview (09/21/2021): 05/27/17 successful cardioversion to NSR 12/07/17 Echo: LVEF 55-60%, left atrial volume index moderately increased, no evidence of pulmonary hypertension RVSP= 29 04/21/17 Echo: LVEF 65-70%, findings suggest mild pulmonary hypertension. 11/19/2020: JESUS/ECV at [facility], moderate to severe biatrial enlargement, no left atrial appendage clot. EF 51-55 %, successful cardioversion. Encounters Date Type Department Care Team Description 04/04/2025 1:00 PM EDT Office Visit [facility] CARDIOLOGY [address] [facility] [address] [place] [address] Michael Barajas MD Paroxysmal atrial fibrillation (Primary Dx); Hyperlipidemia LDL goal <100; Tachy-fermín syndrome; Essential hypertension; Chronic heart failure with preserved ejection fraction (HFpEF) 04/04/2025 11:00 AM EDT - 04/04/2025 11:59 PM EDT Hospital Encounter [facility] [address] [facility] 3rd [place] [address] Michael Barajas MD Tachy-fermín syndrome; Paroxysmal atrial fibrillation; SOB (shortness of breath) Discharge Disposition: Home or Self Care 04/04/2025 Telephone [facility] [address] [facility] [address] [place] [address] Michael Barajas MD 04/04/2025 Travel 02/18/2025 Telephone [facility] CARDIOLOG[facility] [address] [place] [address] Michael Barajas MD from Last 3 Months Family History Medical History Relation Name Comments [...] or training? Not on file Preferred Language Malaysian 06/22/2022 Comments No Sex and Gender Information Value Date Recorded Sex Assigned at Female 04/04/2025 9:46 AM EDT Legal Sex Female 11:14 AM EDT Gender Identity Not on file Sexual Orientation Straight 04/04/2025 9: 46 AM EDT Last Filed Vital Signs Vital Sign Reading Time Taken Comments Blood Pressure 110/54 04/04/2025 1:03 PM EDT Pulse 60 04/04/2025 1:03 PM EDT Temperature 36.4 C (97.5 F) 06/24/2022 7:21 AM EST Respiratory Rate 18 06/24/2022 12:00 PM EST Oxygen Saturation 98% 04/04/2025 1:03 PM EDT Inhaled Oxygen Concentration - - Weight 75.1 kg (165 lb 9.6 oz) 04/04/2025 1:03 P M EDT Height 165.1 cm (5' 5 ) 04/04/2025 1:03 PM EDT Body Mass Index 27.56 04/04/2025 1:03 PM EDT Plan of Treatment Upcoming Encounters Date Type Department Care Team (Late st Contact Info) Description 08/06/2025 10:15 AM EST Office Visit [facility] CARDIOLOGY [address] [phone] Rick Schuster MD [address] [address] 10/24/2025 11:00 AM EDT Office Visit [facility] [address] [facility] [phone] Kristen Spears PA-C [address] [facility] [address] [place] [address] Health Maintenance Due Date Last Done Comments DXA SCAN 1942 Pneumococcal Vaccine 50+ (1 of 2 - PCV) 1961 TDAP/TD VACCINES (1 - Tdap) 1961 ZOSTER VACCINE (1 of 2) 1992 RSV Vaccine - Adults (1 - 1- dose 75+ series) 2017 ANNUAL WELLNESS VISIT 11/04/2020 COVID-19 Vaccine (2 - Jansse n risk series) 11/27/2020 10/30/2020 LIPID PANEL 06/23/2023 06/23/2022, 10/11, 10/16/2020, Additional history exists INFLUENZA VACCINE 01/11/2025 Medical Devices Implanted Type Area Pecan Cleaner Device Identifier Shelf Expiration Date Model / Serial / Lot Ld Pace Ingevitypls Mri Act/Fix Bipol Atrial/Vnt Str 59cm - [id number] - [id number] Implanted:Qty: 1 on 10/09/2021 by Rcik Schustre MD at [facility] Lead [employer] 07/10/2023 [id number] / [id number] / Ld Pace Ingevitypls Mri Act/Fix Bipol Atrial/Vnt Str 52cm - [id number] - [id number] Implanted:Qty: 1 on 10/09/2021 by Rick Schuster MD at [facility] Lead [employer] 07/15/2023 [id number] / [id number] / Pm Accolade Dr/El Mri 4.45x5.88x.75cm 15.8cc - [id number] Implanted:Qty: 1 on 10/09/2021 by Rick Schuster MD at [facility] Pacemaker [employer] 07/09/2023 [id number] / / [id number] Procedures Procedure Name Priority Date/Time Associated Diagnosis Comments ECHO COMPLETE W/ DOPPLER AND COLOR FLOW Routine 04/04/2025 11:48 AM EDT Tachy-fermín syndrome Paroxysmal atrial fibrillation SOB (shortness of breath) REMOTE DEVICE CHECK 01/16/2025 2 :00 AM EDT LIPID PANEL Routine 06/23/2022 12:09 PM EST from Last 3 Months or Most Recently Relevant to Health Maintenance Results * ECHO COMPLETE W/ DOPPLER AND [...] The study is technically adequate for diagnosis. us Michael Barajas MD CV ECHO ORDERABLES Final Resu lt * Remote Device Check (01/16/2025 2:00 AM EDT) Date Time Interrogation Session [id number] [facility] Type Interrogation Session Remote Scheduled [facility] Implantable Pulse Generator Pecan Cleaner [place] [employer] [facility] Implantable Pulse Generator Type IPG [facility] Implantable Pulse Generator Model [id number] [facility] Implantable Pulse Generator Serial Number [id number] [facility] Implantable Pulse Generator Implant Date [id number] [facility] Battery Remaining Percentage 100.00 % [facility] Battery Remaining Longevity 138.0 mo [facility] Battery Status Beginning of Service [facility] Fermín Statistic RA Percent Paced 100.00 [facility] Fermín Statistic RV Percent Paced 35.00 [facility] Atrial Tachy Statistic AT/AF [place] Percent 1.00 [facility] Lead Channel Setting RA Sensing Sensitivity 0.25 [facility] Lead Channel RA Impedance Value 515 [facility] Lead Channel RA Measurements Date and Time 20250115 [facility] Lead Channel Setting RA Pacing Amplitude 2.000 [facility] Lead Channel Setting RA Pacing Pulse Width 0.4 [facility] Lead Channel RV Sensing Intrinsic Amplitude 4.000 [facility] Lead Channel Setting RV Sensing Sensitivity 0.60 [facility] Lead Channel RV Impedance Value 619 [facility] Lead Channel RV Measurements Date and Time 20250115 [facility] Lead Channel Setting RV Pacing Amplitude 2.500 [facility] Lead Channel Setting RV Pacing Pulse Width 0.4 [facility] [place] Setting Mode (NBG Code) DDDR [facility] [place] Setting Lower Rate Limit 60 [facility] [place] Setting AT Mode Switch Rate 170 [facility] [place] Setting Maximum Tracking Rate 130 [facility] [place] Setting Maximum Sensor Rate 130 [facility] [place] Setting PAV Delay 220 [facility] [place] Setting GEOFF Delay 220 [facility] Lead Channel Setting RA Sensing Polarity Bipolar [facility] Lead Channel Setting RV Sensing Polarity Bipolar [facility] Lead Channel Setting RA Pacing Polarity Bipolar [facility] Lead Channel Setting RV Pacing Polarity Bipolar [facility] Lead Channel RA Pacing Threshold Polarity Bipolar [facility] Lead Channel RV Pacing Threshold Polarity Bipolar [facility] Zone Setting Type Category VT [facility] IDC RATE 1 160 [facility] Zone Setting Status Monitor [facility] Zone ID 1 [facility] 01/16/2025 2:00 AM EDT us Rick Schuster MD CV IMPLANTABLE CARDIAC DEVICE Fi nal Result [facility] * Lipid Panel (06/23/2022 12:09 PM EST) Total Cholesterol 121 0 - 200 mg/dL 06/23/2022 1:21 PM EST [facility] Triglycerides 104 0 - 150 mg/dL 06/23/2022 1:21 PM EST [facility] HDL Cholesterol 50 40 - 60 mg/dL 06/23/2022 1:21 PM EST [facility] LDL Cholesterol 52 0 - 100 mg/dL 06/23/2022 1:21 PM EST [facility] VLDL Cholesterol 19 5 - 40 mg/dL 06/23/2022 1:21 PM EST [facility] LDL/HDL Ratio 1.00 06/23/2022 1:21 PM EST [facility] Blood Venipuncture / Unknown 06/23/2022 12:09 PM EST 06/23/2022 12:57 PM EST Narrative [facility] - 06/23/2022 1:21 PM [...] APRN LAB BLOOD ORDERABLES Final R esult [facility]
[address] [place] [address], from Last 3 Months or Most Recently [...] or is breathing): Full Support Care Teams Digital Solutions Architect Relationship Specialty Start Date End Date Eula Arredondo APRN [address] [place] [address] [place] [address] PCP - General Internal Medicine 01/19/24
--- OUTSIDE RECORDS SUMMARY | 2025-04-09 15:02 | XMS_ITS | Encounter Summary ---
[facility] Address [address] [place] [address] Care Team Providers Care Surveillance Systems Engineer Name Role Phone Arnulfo Eula JAMISON Primary Care Provider [phone] Encounter Details Date Type Department Care Team (Late st Contact Info) Description 04/04/2025 Telephone [facility] [address] [facility] [address] [place] [address] Michael Barajas MD 1720 [facility] [address] [place] [address] Social History Tobacco Use Types Packs/Day Years [...] or training? Not on file Preferred Language Mongolian 06/22/2022 Comments No Sex and Gender Information Value Date Recorded Sex Assigned at Female 04/04/2025 9:46 AM EDT Legal Sex Female 11:14 AM EDT Gender Identity Not on file Sexual Orientation Straight 04/04/2025 9: 46 AM EDT documented as of this encounter Miscellaneous Notes * Telephone Encounter - Javier Morin RN - 04/04/2025 1:34 PM EDT [facility] - Cardiology Provider: Dr. Barajas Drug: Jardiance (empaglifozin) 10mg Diagnosis: HFpEF documented in this encounter Plan of Treatment Upcoming Encounters Date Type Department Care Team (Late st Contact Info) Description 08/06/2025 10:15 AM EST Office Visit [facility] CARDIOLOGY [address] [address] Rick Schuster MD [address] [place] [address] 10/24/2025 11:00 AM EDT Office Visit [facility] C[facility] [address] [address] Kristen Spears PA-C [address] [facility] [address] [address] documented as of this encounter Visit Diagnoses Not on filedocumented in this encounter Care Teams Surveillance Systems Engineer Relationship Specialty Start Date End Date Eula Arredondo APRN [address] [place] [address] [place] [address] PCP - General Internal Medicine 01/19/24 documented as of this encounter
--- OUTSIDE RECORDS SUMMARY | 2025-04-09 15:02 | XMS_ITS | Encounter Summary ---
Author Organization [facility] Address [address] [place] [address] Care Team Providers Care Machine Farmworker Name Role Phone Arnulfo Eula APRN Primary Care Provider [phone] Encounter Details Date Type Department Care Team (Latest Contact Info) Description 04/04/2025 Travel Social History Tobacco Use Types Packs/Day Years [...] or training? Not on file Preferred Language Iraqi 06/22/2022 Comments No Sex and Gender Information Value Date Recorded Sex Assigned at Female 04/04/2025 9:46 AM EDT Legal Sex Female 11:14 AM EDT Gender Identity Not on file Sexual Orientation Straight 04/04/2025 9: 46 AM EDT documented as of this encounter Plan of Treatment Upcoming Encounters Date Type Department Care Team (Late st Contact Info) Description 08/06/2025 10:15 AM EST Office Visit [facility] [address] [facility] [address] [place] [address] Rick Schuster MD [address] [facility] [address] [place] [address] 10/24/2025 11:00 AM EDT Office Visit [facility] [address] [facility] [address] [place] [address] Kristen Spears PA-C [address] [facility] [address] [address] [place] [address] documented as of this encounter Visit Diagnoses Not on filedocumented in this encounter Care Teams Machine Farmworker Relationship Specialty Start Date End Date Eula Arredondo APRN [address] [place] [address] PCP - General Internal Medicine 01/19/24 documented as of this encounter
--- OUTSIDE RECORDS SUMMARY | 2025-04-09 15:02 | XMS_ITS | Encounter Summary ---
[facility] Address [address] [place] [address] Care Team Providers Care Manager Social Name Role Phone Arredondo Eula APRN Primary Care Provider [phone] Encounter Details Date Type Department Care Team (Late st Contact Info) Description 02/18/2025 Telephone [facility] CARDIOLOGY [address] [place] [address] [place] [address] Michael Barajas MD [address] [address] Social History Tobacco Use Types Packs/Day Years [...] or training? Not on file Preferred Language Anguillan 06/22/2022 Comments No Sex and Gender Information Value Date Recorded Sex Assigned at Female 04/04/2025 9:46 AM EDT Legal Sex Female 11:14 AM EDT Gender Identity Not on file Sexual Orientation Straight 04/04/2025 9: 46 AM EDT documented as of this encounter Miscellaneous Notes * Telephone Encounter - Dilia Quiroz RegSched Rep - 02/18/2025 3:54 PM EDT PT IS AWARE OF THE APT AND THE ECHO * Telephone Encounter - Javier Morin RN - 02/18/2025 11:49 AM EDT Spoke with patient's daughter over most recent emergency room visit. Patient's daughter states thatshe took her to the emergency room yesterday due to shortness of breath and weakness. ER stated that her heart is enlarged and she has fluid around it. She was advised to reach out to Dr. Barajas for possible diuretic therapy. Will request records and reschedule echocardiogram. documented in this encounter Plan of Treatment Upcoming Encounters Date Type Department Care Team (Late st Contact Info) Description 08/06/2025 10:15 AM EST Office Visit [facility] CARDIOLOGY [address] [phone] Rick Schuster MD [address] [address] 10/24/2025 11:00 AM EDT Office Visit [facility] [address] [facility] [address] Kristen Spears PA-C [address] [place] [address] documented as of this encounter Visit Diagnoses Not on filedocumented in this encounter Care Teams Manager Social Relationship Specialty Start Date End Date Eula Arredondo APRN [address] [place] [address] PCP - General Internal Medicine 01/19/24 documented as of this encounter
== END 2025-04-08 23:59 | disposition home or self-care (01) ==
LOC: LAB.DROPOF 04-09 14:46
PROVIDERS: PCP Nurse Practitioner Family; Visit Provider Nurse Practitioner Family
DX: N39.0 Urinary tract infection, site not specified (principal)
CPT/HCPCS: 87086

== ENCOUNTER 2025-04-11 09:02 | Outpatient (CLI) | payer MEDICARE, SELFPAY ==
[2025-04-11 16:33] LABS: Microscopic, Urine URINE MICROSCOPIC (MICROSCOPIC)
[2025-04-11 18:22] LABS: Bilirubin,Urine Negative (Negative); Color,Urine YELLOW (Yellow); Glucose,Urine (UA) Negative (Negative); Ketones,Urine Negative (Negative); Leukocyte Esterase,Urine 2+ (Negative); PH,Urine 6.0 (5.0-8.5); Protein,Urine Negative (Negative); Specific Gravity, Urine <= 1.005 (1.005-1.030); Urobilinogen,Urine 0.2 EU/dl (0.2)
[2025-04-11 18:38] LABS: Bacteria,Urine Trace /lpf; RBC,Urine Occasional #/hpf (0-3)
== END 2025-04-11 23:59 ==
LOC: LAB.DROPOF 04-15 09:03
PROVIDERS: PCP Internal Medicine; Visit Provider Internal Medicine
DX: N39.0 Urinary tract infection, site not specified (principal); R39.9 Unspecified symptoms and signs involving the genitourinary system
CPT/HCPCS: 81001; 87086

== ENCOUNTER 2025-04-17 13:00 | Outpatient (CLI) | payer MEDICARE, SELFPAY ==
--- OUTSIDE RECORDS SUMMARY | 2025-04-04 10:00 | XMS_ITS | Encounter Summary ---
[facility] Organization [facility] Address [address] [id number] Care Team Providers Care Sailor Name Role Phone Eula Arredondo APRN Primary Care Provider [phone] Reason for Referral * Diagnostic Imaging (Routine) - Closed Specialty Diagnoses / Procedures Referred By Contac t Referred To Contact Diagnoses Tachy-anahi syndrome Paroxysmal atrial fibrillation SOB (shortness of breath) Procedures Adult Transthoracic Echo Complete W/ Cont if Necessary Per Protocol Micheal Barajas MD [address] [place] [address] Phone: tel: fax: [place] [phone] Phone: tel: Referral ID Status Reason Start Date Expiration Date Visits Re quested Visits Authorized [id number] Closed 10/18/2024 01/17/2026 1 1 Reason for Visit * Diagnostic Imaging (Routine) - Closed Specialty Diagnoses / Procedures Referred By Contac t Referred To Contact Diagnoses Tachy-anahi syndrome Paroxysmal atrial fibrillation SOB (shortness of breath) Procedures Adult Transthoracic Echo Complete W/ Cont if Necessary Per Protocol Michael Barajas MD [address] [place] [address] Phone: tel: fax: [address] [address] Phone: tel: Referral ID Status Reason Start Date Expiration Date Visits Re quested Visits Authorized [id number] Closed 10/18/2024 01/17/2026 1 1 Encounter Details Date Type Department Care Team (Late st Contact Info) Description 04/04/2025 11:00 AM EDT - 04/04/2025 11:59 PM EDT Hospital Encounter [facility] [address] [facility] [address] [place] [phone] Michael Barajas MD [address] [id number] Tachy-anahi syndrome; Paroxysmal atrial fibrillation; SOB (shortness of breath) Discharge Disposition: Home or Self Care Social History Tobacco Use Types Packs/Day Years Used Date Smoking Tobacco: Former Cigarettes 0.3 62 0 02/24/1959 - 02/24/2021 Smokeless Tobacco: Never Alcohol Use Standard Drinks/Week Comments Never 0 [...] or training? Not on file Preferred Language Luxembourgish 06/22/2022 Comments No Sex and Gender Information Value Date Recorded Sex Assigned at Female 04/04/2025 9:46 AM EDT Legal Sex Female 11:14 AM EDT Gender Identity Not on file Sexual Orientation Straight 04/04/2025 9: 46 AM EDT documented as of this encounter Last Filed Vital Signs Vital Sign Reading Time Taken Comments Blood Pressure 148/80 04/04/2025 11:21 AM EDT Pulse - - Temperature - - Respiratory Rate - - Oxygen Saturation - - Inhaled Oxygen Concentration - - Weight 79.4 kg (175 lb) 04/04/2025 11:21 AM EDT Height 165.1 cm (5' 5 ) 04/04/2025 11:21 AM EDT Body Mass Index 29.12 04/04/2025 11:21 AM EDT documented in this encounter Medications at Time of Discharge apixaban (Eliquis) 5 MG tablet tablet Take 1 tablet by mouth 2 (Two) Times a Day. aspirin 81 MG EC tablet Take 1 tablet by mouth Daily. OTC 03/17/2023 atorvastatin (LIPITOR) 40 MG tablet Take 1 tablet by mouth Every Night. 90 tablet 4 07/18/2024 diazePAM (VALIUM) 5 MG tablet Take 1 tablet by mouth 2 (Two) Times a Day As Needed for Anxiety. diphenhydrAMINE (BENADRYL) 25 MG tablet Take 1 tablet by mouth At Night As Needed for Sleep or Allergies. OTC flecainide (TAMBOCOR) 50 MG tablet Take 1 tablet by mouth 2 (Two) Times a Day. 180 tablet 1 04/04/2025 losartan (Cozaar) 25 MG tablet Take 1 tablet by mouth Daily. 90 tablet 3 07/18/2024 metoprolol tartrate (LOPRESSOR) 25 MG tablet Take 1 tablet by mouth 2 (Two) Times a Day. 180 tablet 1 04/04/2025 documented as of this encounter Plan of Treatment Upcoming Encounters Date Type Department Care Team (Late st Contact Info) Description 08/06/2025 10:15 AM EST Office Visit [facility] CARDIOLOGY [address] [facility] [address] [place] [address] Rick Schuster MD [address] [facility] [address] [place] [address] 10/24/2025 11:00 AM EDT Office Visit [facility] [address] [place] [address] Kristen Spears PA-C [address] [place] [address] documented as of this encounter Procedures Procedure Name Priority Date/Time Associated Diagnosis Comments ECHO COMPLETE W/ DOPPLER AND COLOR FLOW Routine 04/04/2025 11:48 AM EDT Tachy-anahi syndrome Paroxysmal atrial fibrillation SOB (shortness of breath) documented in this encounter Results * ECHO COMPLETE W/ DOPPLER AND COLOR FLOW (04/04/2025 11:48 AM EDT) EF(MOD-bp) 50.8 % LVIDd 4.8 cm LVIDs 3.0 cm IVSd 0.90 cm LVPWd 0.90 cm FS 37.5 % IVS/LVPW 1.00 cm ESV(cubed) 27.0 ml LV Sys Vol (BSA corrected) 27.1 cm2 EDV(cubed) 110.6 ml LV Yang Vol (BSA corrected) 54.0 cm2 LV mass(C)d 147.8 grams LVOT area 3.1 cm2 LVOT diam 2.00 cm EDV(MOD-sp2) 89.2 ml EDV(MOD-sp4) 101.0 ml ESV(MOD-sp2) 44.4 ml ESV(MOD-sp4) 50.6 ml SV(MOD-sp2) 44.8 ml SV(MOD-sp4) 50.4 ml SVi(MOD-SP2) 24.0 ml/m2 SVi(MOD-SP4) 27.0 ml/m2 SVi (LVOT) 30.8 ml/m2 EF(MOD-sp2) 50.2 % EF(MOD-sp4) 49.9 % MV E max kevin 60.8 cm/sec MV A max kevin 69.7 cm/sec MV dec time 0.23 sec MV E/A 0.87 IVRT 176.0 ms LA ESV Index (BP) 34.5 ml/m2 Med Peak E' Kevin 7.0 cm/sec Lat Peak E' Kvein 9.3 cm/sec TR max kevin 257.3 cm/sec Avg E/e' ratio 7.46 SV(LVOT) 57.5 ml RV Base 3.7 cm RV Mid 3.0 cm RV Length 7.4 cm TAPSE (>1.6) 2.21 cm RV S' 12.4 cm/sec LA dimension (2D) 4.4 cm LV V1 max 76.1 cm/sec LV V1 max PG 2.32 mmHg LV V1 mean PG 1.00 mmHg LV V1 VTI 18.3 cm Ao pk kevin 102.3 cm/sec Ao max PG 4.2 mmHg Ao mean PG 2.00 mmHg Ao V2 VTI 24.2 cm JIMENEZ(I,D) 2.37 cm2 Dimensionless Index 0.76 (DI) MV max PG 2.10 mmHg MV mean PG 1.00 mmHg MV V2 VTI 24.6 cm MV P1/2t 43.7 msec MVA(P1/2t) 5.0 cm2 MVA(VTI) 2.34 cm2 MV dec slope 490.0 cm/sec2 TR max PG 26.6 mmHg PA V2 max 72.7 cm/sec PA acc time 0.14 sec Ao root diam 3.2 cm Echo EF Estimated 50.0 % Ascending aorta 3.3 cm BH CV VAS BP LEFT ARM 148/80 mmHg RVSP(TR) 34 mmHg RAP systole 3 mmHg Ao root area (BSA corrected) 1.7 cm2 Anatomical Region Laterality Modality Ultrasound Narrative 04/05/2025 6:25 PM EDT Left ventricular systolic function is normal. Estimated left ventricular EF = 50% Left ventricular ejection fraction appears to be 51 - 55%. Left ventricular diastolic function was indeterminate. The left atrial cavity is mildly dilated. Estimated right ventricular systolic pressure from tricuspid regurgitation is normal (<35 mmHg). Calculated right ventricular systolic pressure from tricuspid regurgitation is 34 mmHg. I discussed the findings with the patient and family in the office on the day of the echo 04/04/2025 EF marginally improved compared to the previous echo from 2022 Left Ventricle Left ventricular systolic function is normal. Estimated left ventricular EF = 50% Left ventricular ejection fraction appears to be 51 - 55%. Normal left ventricular cavity size and wall thickness noted. Left ventricular diastolic function was indeterminate. Right Ventricle Normal right ventricular cavity size, wall thickness and systolic function noted. Electronic lead present in the ventricle. Left Atrium The left atrial cavity is mildly dilated. Right Atrium Normal right atrial cavity size noted. The inferior vena cava is normally sized. The diameter of the inferior vena cava is 1.51 cm. Normal IVC inspiratory collapse of greater than 50% noted. An electronic lead is present in the right atrium. Mitral Valve The mitral valve is structurally normal with no significant stenosis present. Trace mitral valve regurgitation is present. Tricuspid Valve The tricuspid valve is structurally normal with no stenosis present. Mild tricuspid valve regurgitation is present. Estimated right ventricular systolic pressure from tricuspid regurgitation is normal (<35 mmHg). Calculated right ventricular systolic pressure from tricuspid regurgitation is 34 mmHg. Aortic Valve No aortic valve regurgitation or stenosis is present. The aortic valve is abnormal in structure. The aortic valve exhibits sclerosis. The aortic valve appears trileaflet. Pulmonic Valve The pulmonic valve is structurally normal with no significant stenosis present. There is no significant pulmonic valve regurgitation present. Pericardium The pericardium is normal. There is no evidence of pericardial effusion. . Greater Vessels No dilation of the aortic root is present. Aortic root = 3.2 cm Aortic root (corrected for BSA) = 1.7 cm No dilation of the sinuses of Valsalva is present. No dilation of the ascending aorta is present. Ascending aorta = 3.3 cm There is no plaque in the ascending aorta present. The inferior vena cava is normally sized. Normal IVC inspiratory collapse of greater than 50% noted. Study Quality The study is technically adequate for diagnosis. Michael Barajas MD CV ECHO ORDERABLES Final Resu lt documented in this encounter Visit Diagnoses Diagnosis Tachy-anahi syndrome Sinoatrial node dysfunction Paroxysmal atrial fibrillation Atrial fibrillation SOB (shortness of breath) Shortness of breath documented in this encounter Care Teams Sailor Relationship Specialty Start Date End Date Eula Arredondo APRN [address] [place] [address] PCP - General Internal Medicine 01/19/24 documented as of this encounter
--- OUTSIDE RECORDS SUMMARY | 2025-04-04 12:00 | XMS_ITS | Encounter Summary ---
Author Organization [facility] Address [address] [place] [address] Care Team Providers Care Cut Off Sawyer Name Role Phone Eula Arredondo APRN Primary Care Provider [phone] Reason for Visit * Reason Comments Paroxysmal atrial fibrillation Encounter Details Date Type Department Care Team (Late st Contact Info) Description 04/04/2025 1:00 PM EDT Office Visit [facility] C[facility]IOLOGY [address] [facility] [address] [place] [address] Michael Barajas MD [address] [facility] [address] [place] [address] Paroxysmal atrial fibrillation (Primary Dx); Hyperlipidemia LDL goal <100; Tachy-anahi syndrome; Essential hypertension; Chronic heart failure with preserved ejection fraction (HFpEF) Social History Tobacco Use Types Packs/Day Years [...] Sign Reading Time Taken Comments Blood Pressure 110/54 04/04/2025 1:03 PM EDT Pulse 60 04/04/2025 1:03 PM EDT Temperature - - Respiratory Rate - - Oxygen Saturation 98% 04/04/2025 1:03 PM EDT Inhaled Oxygen Concentration - - Weight 75.1 kg (165 lb 9.6 oz) 04/04/2025 1:03 P M EDT Height 165.1 cm (5' 5 ) 04/04/2025 1:03 PM EDT Body Mass Index 27.56 04/04/2025 1:03 PM EDT documented in this encounter Patient Instructions * Patient Instructions* Michael Barajas MD - 04/04/2025 1:00 PM EDT Decrease metoprolol to 25 mg twice daily, after one month if still fatigued and HR < 90, we can stop Metoprolol Jardiance 10 mg daily to help relax the heart. documented in this encounter Progress Notes * Michael Barajas MD - 04/04/2025 1:00 PM EDT OFFICE VISIT NOTE [facility] CARDIOLOG[facility] Name: Emilee Rebollar Date: 04/04/2025 : 1940 REFERRING/PRIMARY PROVIDER: Eula Arredondo APRN Chief Complaint Patient presents with Paroxysmal atrial fibrillation HPI: Emilee Rebollar is a 84 y.o. female who presents for A.Fib, chronic HFpEF and PAD. Historyof paroxysmal atrial fibrillation [place] [address] Hughes. Also with PAD status post right popliteal DCB by Dr. Hughes 2016, echo and stress test previously low risk benign, normal EF 55 to 60% last in 2018. Status post JESUS/ECV 11/19/2020, JESUS showed EF 50-55% with moderate severe left atrial enlargement, successful cardioversion. Low risk stress test 12/18/2020. Recurrent ECV 02/24/2021 on flecainide, unable to tolerate BB due to sinus bradycardia. Ultimately had [place] PPM implanted by Dr. Schuster09/2021. admitted 06/24/22 with transient aphasia, MRI with no acute infarct. Due to increasing worsening shortness of breath went to [facility] ER 02/15/2025, only abnormality was elevated proBNP with mildly enlarged cardiac silhouette on chest x-ray, diagnosed with CHF.No recurrent symptoms since then. Main complaint is fatigue over the past year, blood pressure at home is running low around 90-110 systolic heart rate 60 A-paced. ROS:Pertinent positives as listed in the HPI. All other systems reviewed and negative. Past Medical History: Diagnosis Date Atrial fibrillation GERD (gastroesophageal reflux disease) History of transfusion 2017 PATIENT REPORTS NO REACTION Hyperlipidemia Hypertension Past Surgical History: Procedure Laterality Date BACK SURGERY CARDIAC ELECTROPHYSIOLOGY PROCEDURE N/A 10/09/2021 Procedure: Pacemaker DC new, DNS meds; Surgeon: Rick Schuster MD; Location: [facility] INVASIVE LOCATION; Service: Cardiology; Laterality: N/A; COLONOSCOPY Social History Socioeconomic History Marital status: Tobacco Use Smoking status: Former Current packs/day: 0.00 Average packs/day: 0.3 packs/day for 62.0 years (15.5 ttl pk-yrs) Types: Cigarettes Start date: 02/24/1959 Quit date: 02/24/2021 Years since quittin.1 Smokeless tobacco: Never Vaping Use Vaping status: Never Used Substance and Sexual Activity Alcohol use: Never Drug use: Never Sexual activity: Defer Family History Problem Relation Name Age of Onset Heart attack Mother Heart attack Father Aneurysm Sister Heart attack Brother Allergies Allergen Reactions Penicillins Hives Valacyclovir Other (See Comments) Unable to tolerate, shakes, unable to urinate Current Outpatient Medications Medication Instructions apixaban (ELIQUIS) 5 mg, 2 Times Daily aspirin 81 mg, Oral, Daily, OTC atorvastatin (LIPITOR) 40 mg, Oral, Nightly diazePAM (VALIUM) 5 mg, 2 Times Daily PRN diphenhydrAMINE (BENADRYL) 25 mg, Nightly PRN flecainide (TAMBOCOR) 50 mg, Oral, 2 Times Daily losartan (COZAAR) 25 mg, Oral, Daily metoprolol tartrate (LOPRESSOR) 25 mg, Oral, 2 Times Daily Vitals: 04/04/25 1303 BP: 110/54 BP Location: Right arm Patient Position: Sitting Cuff Size: Adult Pulse: 60 SpO2: 98% Weight: 75.1 kg (165 lb 9.6 oz) Height: 165.1 cm (65 ) Body mass index is 27.56 kg/m??. PHYSICAL EXAM: General Appearance: ?? well developed ?? well nourished Neck: ?? thyroid not enlarged ?? supple Respiratory: ?? no respiratory distress ?? normal breath sounds ?? no rales Cardiovascular: ?? no jugular venous distention ?? regular rhythm ?? apical impulse normal ?? S1 normal, S2 normal ?? no S3, no S4 ?? no murmur ?? no rub, no thrill ?? carotid pulses normal; no bruit ?? pedal pulses normal ?? lower extremity edema: none Skin: warm, dry RESULTS: Procedures Results for orders placed during the hospital encounter of 06/22/22 Adult Transthoracic Echo Complete W/ Cont if Necessary Per Protocol 06/24/2022 7:41 AM Interpretation Summary Left ventricular systolic function is mildly decreased. Left ventricular ejection fraction appears to be 46 - 50%. Left ventricular wall thickness is consistent with mild concentric hypertrophy. Left ventricular diastolic function is consistent with (grade I) impaired relaxation. Saline test results are negative. There is calcification of the aortic valve. Estimated right ventricular systolic pressure from tricuspid regurgitation is normal (<35 mmHg). Labs: Lab Results Component Value Date CHOL 121 06/23/2022 TRIG 104 06/23/2022 HDL 50 06/23/2022 LDL 52 06/23/2022 AST 22 06/22/2022 ALT 14 06/22/2022 Lab Results Component Value Date HGBA1C 5.40 06/23/2022 Creatinine Date Value Ref Range Status 06/23/2022 0.85 0.57 - 1.00 mg/dL Final 06/22/2022 0.90 0.60 - 1.30 mg/dL Final 10/07/2021 0.85 0.57 - 1.00 mg/dL Final 02/24/2021 1.03 (H) 0.57 - 1.00 mg/dL Final eGFR Non Amer Date Value Ref Range Status 02/24/2021 52 (L) >60 mL/min/1.73 Final 11/19/2020 65 >60 mL/min/1.73 Final ASSESSMENT: Problem List Items Addressed This Visit Hyperlipidemia LDL goal <100 (Chronic) Essential hypertension (Chronic) Relevant Medications metoprolol tartrate (LOPRESSOR) 25 MG tablet Paroxysmal atrial fibrillation - Primary (Chronic) Relevant Medications metoprolol tartrate (LOPRESSOR) 25 MG tablet flecainide (TAMBOCOR) 50 MG tablet Tachy-anahi syndrome (Chronic) Overview Added automatically from request for surgery [id number] Relevant Medications metoprolol tartrate (LOPRESSOR) 25 MG tablet flecainide (TAMBOCOR) 50 MG tablet Chronic heart failure with preserved ejection fraction (HFpEF) Relevant Medications metoprolol tartrate (LOPRESSOR) 25 MG tablet flecainide (TAMBOCOR) 50 MG tablet PLAN: 1. Paroxysmal atrial fibrillation/ Tachy-anahi syndrome S/p Centrobit [place] PPM 09/2021 with recent interrogation in EP office noted Now on Eliquis Also on Flecainide, followed by Dr. Schuster Decreased flecainide to 50 mg twice daily 04/04/2025 due to dizziness and fatigue 2. Chronic HFpEF: Start Jardiance 10 mg daily Continue losartan Decreased metoprolol due to fatigue Echo 04/04/2025 reviewed, preserved EF 50% with indeterminate diastolic function. Low-sodium diet and exercise recommended 3. PAD: Continue secondary prevention with aspirin atorvastatin Continue exercise Currently no claudication symptoms 4. Transient aphasia Admission 06/2022, ruled out for stroke INR therapeutic on admission, < 1% atrial fibrillation on interrogation of her pacemaker. Continue aspirin, atorvastatin 40 mg daily Follow up with Neurology CTA of the neck showed mild atherosclerotic plaque in the carotid bulbs, continue medical therapy. 5. Fatigue with hypotension: Decrease metoprolol to 25 mg twice daily, decrease flecainide to 50 mg twice daily Increase hydration Continue losartan 25 mg daily given HFpEF EKG 04/04/2025 shows atrial paced rhythm. 6. Pacemaker: Follow-up Dr. Schuster, normal device interrogation remotely. Advance Care Planning ACP discussion was held with the patient during this visit. Patient has an advance directive (not in EMR), copy requested. Follow-up Return in about 6 months (around 10/03/2025). Michael aBrajas MD, [facility], [facility] Interventional Cardiology documented in this encounter Plan of Treatment Upcoming Encounters Date Type Department Care Team (Late st Contact Info) Description 08/06/2025 10:15 AM EST Office Visit [facility] CARDIOLOGY [address] [phone] Rick Schuster MD [address] [id number] 10/24/2025 11:00 AM EDT Office Visit [facility] CARDIOLOGY [address] [address] Kristen Spears PA-C [address] [facility] [address] [address] documented as of this encounter Visit Diagnoses Diagnosis Paroxysmal atrial fibrillation- Primary Atrial fibrillation Hyperlipidemia LDL goal <100 Other and unspecified hyperlipidemia Tachy-anahi syndrome Sinoatrial node dysfunction Essential hypertension Unspecified essential hypertension Chronic heart failure with preserved ejection fraction (HFpEF) documented in this encounter Care Teams Cut Off Sawyer Relationship Specialty Start Date End Date Eula Arredondo APRN [address] [place] [address] PCP - General Internal Medicine 01/19/24 documented as of this encounter
--- OUTSIDE RECORDS SUMMARY | 2025-04-18 20:21 | XMS_ITS | Clinical Summary ---
Author Organization [facility] Address [address] [place] [address] Care Team Providers Care Corner Brace Block Machine Operator Name Role Phone Eula Arredondo APRN Primary Care Provider [phone] Allergies Active Allergy Reactions Criticality Noted Date [...] (09/29/2021): Added automatically from request for surgery [id number] Paroxysmal atrial fibrillation 11/06/2020 PAD (peripheral artery [...] suggest mild pulmonary hypertension. 11/19/2020: JESUS/ECV at [facility], moderate to severe biatrial enlargement, no left atrial appendage clot. EF 51-55 %, successful cardioversion. Encounters Date Type Department Care Team Description 04/04/2025 1:00 PM EDT Office Visit [facility] [address] [facility] [address] [place] [address] Michael Barajas MD Paroxysmal atrial fibrillation (Primary Dx); Hyperlipidemia LDL goal <100; Tachy-fermín syndrome; Essential hypertension; Chronic heart failure with preserved ejection fraction (HFpEF) 04/04/2025 11:00 AM EDT - 04/04/2025 11:59 PM EDT Hospital Encounter [facility] [address] [facility] 3rd [place] [address] Michael Barajas MD Tachy-fermín syndrome; Paroxysmal atrial fibrillation; SOB (shortness of breath) Discharge Disposition: Home or Self Care 04/04/2025 Telephone [facility] [address] [facility] [address] [place] [address] Michael Barajas MD 04/04/2025 Travel 02/18/2025 Telephone [facility] [address] [facility] [place] [address] Michael Barajas MD from Last 3 Months [...] or training? Not on file Preferred Language Kazakh 06/22/2022 Comments No Sex and Gender Information [...] Description 08/06/2025 10:15 AM EST Office Visit [facility] [address] [phone] Rick Schuster MD [address] [address] 10/24/2025 11:00 AM EDT Office Visit [facility] [address] [facility] [phone] Kristen Spears PA-C [address] [place] [address] Health Maintenance Due Date Last [...] VACCINE 01/11/2025 Medical Devices Implanted Type Area Irrigation Foreman Device Identifier Shelf Expiration Date Model / Serial / Lot Ld Pace Ingevitypls Mri Act/Fix Bipol Atrial/Vnt Str 59cm - [id number] - [id number] Implanted:Qty: 1 on 10/09/2021 by Rick Schuster MD at [facility] Lead [employer] 07/10/2023 [id number] / [id number] / Ld Pace Ingevitypls Mri Act/Fix Bipol Atrial/Vnt Str 52cm - [id number] - [id number] Implanted:Qty: 1 on 10/09/2021 by Rick Schuster MD at [facility] Lead [employer] 07/15/2023 [id number] / [id number] / Pm Accolade Dr/El Mri 4.45x5.88x.75cm 15.8cc - [id number] Implanted:Qty: 1 on 10/09/2021 by Rick Schuster MD at [facility] Pacemaker [employer] 07/09/2023 [id number] / / [id number] Procedures Procedure Name Priority Date/Time Associated Diagnosis Comments REMOTE DEVICE CHECK 04/17/2025 2 :02 AM EST ECHO COMPLETE W/ DOPPLER AND COLOR FLOW Routine 04/04/2025 11:48 AM EDT Tachy-fermín syndrome Paroxysmal atrial fibrillation SOB (shortness of breath) SCANNED EKG 04/04/2025 REMOTE DEVICE CHECK 01/16/2025 2 :00 AM EDT LIPID PANEL Routine 06/23/2022 12:09 PM EST from Last 3 Months or Most Recently Relevant to Health Maintenance Results * Remote Device Check (04/17/2025 2:02 AM EST) Only the most recent of2 resultswithin the time period is included. Date Time Interrogation Session [id number] [facility] Type Interrogation Session Remote Scheduled [facility] Implantable Pulse Generator Irrigation Foreman Ziliko [facility] Implantable Pulse Generator Type IPG [facility] Implantable Pulse Generator Model L331 [facility] Implantable Pulse Generator Serial Number [id number] [facility] Implantable Pulse Generator Implant Date [id number] [facility] Battery Remaining Percentage 100.00 % [facility] Battery Remaining Longevity 138.0 mo [facility] Battery Status Beginning of Service [facility] Ferm[place] Statistic RA Percent Paced 100.00 [facility] [place] Statistic RV Percent Paced 37.00 [facility] Atrial Tachy Statistic AT/AF Neb[place] Percent 1.00 [facility] Lead Channel Setting RA Sensing Sensitivity 0.25 [facility] Lead Channel RA Impedance Value 522 [facility] Lead Channel RA Measurements Date and Time [id number] [facility] Lead Channel Setting RA Pacing Amplitude 2.000 [facility] Lead Channel Setting RA Pacing Pulse Width 0.4 [facility] Lead Channel RV Sensing Intrinsic Amplitude 6.500 [facility] Lead Channel Setting RV Sensing Sensitivity 0.60 [facility] Lead Channel RV Impedance Value 613 [facility] Lead Channel RV Measurements Date and Time [id number] [facility] Lead Channel Setting RV Pacing Amplitude 2.500 [facility] Lead Channel Setting RV Pacing Pulse Width 0.4 [facility] [place] Setting Mode (NBG Code) DDDR [facility] [place] Setting Lower Rate Limit 60 [facility] [place] Setting AT Mode Switch Rate 170 [facility] [place] Setting Maximum Tracking Rate 130 [facility] [place] Setting Maximum Sensor Rate 130 [facility] [place] Setting PAV Delay 220 [facility] [place] Setting GEOFF Delay 220 [facility] Lead Channel Setting RA Sensing Polarity Bipolar [facility] Lead Channel Setting RV Sensing Polarity Bipolar [facility] Lead Channel Setting RA Pacing Polarity Bipolar [facility] Lead Channel Setting RV Pacing Polarity Bipolar [facility] Lead Channel RA Pacing Threshold Polarity Bipolar [facility] Lead Channel RV Pacing Threshold Polarity Bipolar [facility] Zone Setting Type Category VT [facility] IDC RATE 1 160 [facility] Zone Setting Status Monitor [facility] Zone ID 1 [facility] 04/17/2025 2:02 AM EST us Rick Schuster MD CV IMPLANTABLE CARDIAC DEVICE Fi nal Result [facility] * ECHO COMPLETE W/ DOPPLER AND COLOR [...] CV ECHO ORDERABLES Final Resu lt * ECG Scan (04/04/2025) Michael Barajas MD ECG ORDERABLES Final Result * Lipid Panel (06/23/2022 12:09 PM EST) Total Cholesterol 121 0 - 200 mg/dL 06/23/2022 1:21 PM EST [facility] Triglycerides 104 0 - 150 mg/dL 06/23/2022 1:21 PM EST [facility] HDL Cholesterol 50 40 - 60 mg/dL 06/23/2022 1:21 PM EST [facility] LDL Cholesterol 52 0 - 100 mg/dL 06/23/2022 1:21 PM EST [facility] VLDL Cholesterol 19 5 - 40 mg/dL 06/23/2022 1:21 PM EST [facility] LDL/HDL Ratio 1.00 06/23/2022 1:21 PM EST [facility] Blood Venipuncture / Unknown 06/23/2022 12:09 PM EST 06/23/2022 12:57 PM EST [facility] - 06/23/2022 1:21 PM EST Cholesterol [...] APRN LAB BLOOD ORDERABLES Final R esult [facility]
[address] [place] [address], from Last 3 Months or Most Recently [...] or is breathing): Full Support Care Teams Corner Brace Block Machine Operator Relationship Specialty Start Date End Date Eula Arredondo APRN [address] [place] [address] [place] PATEL [address] PCP - General Internal Medicine 01/19/24
--- OUTSIDE RECORDS SUMMARY | 2025-04-18 20:21 | XMS_ITS | Encounter Summary ---
[facility] Address [address] [place] [address] Care Team Providers Care Assistant Cross Country Coach Name Role Phone Arredondo Eula APRN Primary Care Provider [phone] Encounter Details Date Type Department Care Team (Late st Contact Info) Description 02/18/2025 Telephone [facility] [address] [place] [address] [place] [address] Michael Barajas MD [address] [address] Social History Tobacco Use Types Packs/Day Years [...] or training? Not on file Preferred Language Jordanian 06/22/2022 Comments No Sex and Gender Information [...] Description 08/06/2025 10:15 AM EST Office Visit [facility] [address] [phone] Rick Schuster MD [address] [address] 10/24/2025 11:00 AM EDT Office Visit [facility] [address] [facility] [address] Kristen Spears PA-C [address] [place] [address] documented as of this encounter Visit Diagnoses Not on filedocumented in this encounter Care Teams Assistant Cross Country Coach Relationship Specialty Start Date End Date Eula Arredondo APRN [address] [place] [address] PCP - General Internal Medicine 01/19/24 documented as of this encounter
--- OUTSIDE RECORDS SUMMARY | 2025-04-18 20:21 | XMS_ITS | Encounter Summary ---
[facility] Address [address] [place] [address] Care Team Providers Care Gardening Supervisor Name Role Phone Arnulfo Eula JAMISON Primary Care Provider [phone] Encounter Details Date Type Department Care Team (Late st Contact Info) Description 04/04/2025 Telephone [facility] [address] [facility] [address] [place] [address] Michael Barajas MD [address] [facility] [address] [place] [address] Social History Tobacco Use Types Packs/Day Years [...] or training? Not on file Preferred Language Danish 06/22/2022 Comments No Sex and Gender Information Value Date Recorded Sex Assigned at Female 04/04/2025 9:46 AM EDT Legal Sex Female 11:14 AM EDT Gender Identity Not on file Sexual Orientation Straight 04/04/2025 9: 46 AM EDT documented as of this encounter Miscellaneous Notes * Telephone Encounter - Javier Morin RN - 04/04/2025 1:34 PM EDT [facility] - Cardiology Provider: Dr. Barajas Drug: Jardiance (empaglifozin) 10mg Diagnosis: HFpEF documented in this encounter Plan of Treatment Upcoming Encounters Date Type Department Care Team (Late st Contact Info) Description 08/06/2025 10:15 AM EST Office Visit [facility] [address] [address] Rick Schuster MD [address] [place] [address] 10/24/2025 11:00 AM EDT Office Visit [facility] [address] [address] Kristen Spears PA-C [address] [facility] [address] [address] documented as of this encounter Visit Diagnoses Not on filedocumented in this encounter Care Teams Gardening Supervisor Relationship Specialty Start Date End Date Eula Arredondo APRN [address] [place] [address] [place]J PATEL [address] PCP - General Internal Medicine 01/19/24 documented as of this encounter
--- OUTSIDE RECORDS SUMMARY | 2025-04-18 20:21 | XMS_ITS | Encounter Summary ---
Author Organization [facility] Address [address] [place] [address] Care Team Providers Care Hand I Thermal Cutter Name Role Phone Arnulfo Eula APRN Primary Care Provider [phone] Encounter Details Date Type Department Care Team [...] or training? Not on file Preferred Language [place]er 06/22/2022 Comments No Sex and Gender Information Value Date Recorded Sex Assigned at Female 04/04/2025 9:46 AM EDT Legal Sex Female 11:14 AM EDT Gender Identity Not on file Sexual Orientation Straight 04/04/2025 9: 46 AM EDT documented as of this encounter Plan of Treatment Upcoming Encounters Date Type Department Care Team (Late st Contact Info) Description 08/06/2025 10:15 AM EST Office Visit [facility] [address] [facility] [address] [place] [address] Rick Schuster MD [address] [facility] [address] [place] [address] 10/24/2025 11:00 AM EDT Office Visit [facility] [address] [facility] [address] [place] [address] Kristen Spears PA-C [address] [facility] [address] [place] [place] [address] documented as of this encounter Visit Diagnoses Not on filedocumented in this encounter Care Teams Hand I Thermal Cutter Relationship Specialty Start Date End Date Eula Arredondo APRN [address] [place] [address] PCP - General Internal Medicine 01/19/24 documented as of this encounter
== END 2025-04-17 23:59 | disposition home or self-care (01) ==
LOC: LAB.DROPOF 04-18 20:20
PROVIDERS: PCP Internal Medicine; Visit Provider Internal Medicine
DX: N39.0 Urinary tract infection, site not specified (principal)
CPT/HCPCS: 87086